=== PATIENT | male | born 1995 | race Hispanic/Latino ===

== ENCOUNTER 2020-04-21 13:14 | Inpatient (IN) | payer OTHER ==
[~2020-04-21] VITALS: Ht 175.3 cm; Wt 116.1 kg
[2020-04-21 14:51] LABS: BASOPHILS % 0.1 % (0.0-1.0); EOSINOPHILS % 0.4 % (0.0-6.0); HEMATOCRIT 22.9 % (38.2-49.6); LYMPHOCYTES # (AUTO) 1.3 (1.0-3.2); MEAN CORPUSCULAR HEMOGLOBIN 29.6 pg (28-32); MEAN CORPUSCULAR HGB CONC 29.7 g/dL (31-35); MEAN CORPUSCULAR VOLUME 99.6 fL (81-99); MONOCYTES # (AUTO) 0.6 (0.2-0.8); MONOCYTES % 5.4 % (4.4-11.3); NEUTROPHILS # (AUTO) 7.9 (2.1-6.9); NEUTROPHILS % 77.7 % (38.7-80.0); PLATELET COUNT 58 x10e3/uL (140-360); RED CELL DISTRIBUTION WIDTH 27.5 % (11.7-14.4)
[2020-04-21 14:57] LABS: HEMOGLOBIN 6.8 g/dL (14.0-18.0)
[2020-04-21 15:02] LABS: INR 1.1; PARTIAL THROMBOPLASTIN TIME 28.4 seconds (23.8-35.5); PROTHROMBIN TIME 14.9 seconds (11.9-14.5)
[2020-04-21 15:09] LABS: ALANINE AMINOTRANSFERASE 148 IU/L (0-55); ALBUMIN 2.6 g/dL (3.5-5.0); ALBUMIN/GLOBULIN RATIO 0.6 (0.8-2.0); ALKALINE PHOSPHATASE 77 IU/L (40-150); ANION GAP 12.8 mmol/L (8-16); BLOOD UREA NITROGEN 14 mg/dL (7-26); BUN/CREATININE RATIO 22 (6-25); CALCIUM 8.7 mg/dL (8.4-10.2); CARBON DIOXIDE 24 mmol/L (22-29); CHLORIDE 104 mmol/L (98-107); CREATINE KINASE 36 IU/L (30-200); CREATININE, SERUM 0.63 mg/dL (0.72-1.25); EST GLOMERULAR FILTRATION RATE > 60 ML/MIN (60-); GLUCOSE 108 mg/dL (74-118); POTASSIUM 3.8 mmol/L (3.5-5.1); SODIUM 137 mmol/L (136-145)
[2020-04-21] MEDS ORDERED: SODIUM CHLORIDE 0.9% 1000ML 1,000 ML IV STA (15:12)
[2020-04-21] MEDS ORDERED: PANTOPRAZOLE 40 MG 10ML VIAL IV NR (15:15)
[2020-04-21] MEDS ORDERED: FAMOTIDINE 20 MG/2 ML VIAL IV ONE (15:15)
[2020-04-21] MEDS ORDERED: SODIUM CHLORIDE 0.9% 250ML 250 ML IV ONE (15:15)
--- NOTE | 2020-04-21 15:18 | Emergency Department Note ---
History of Present Illnes History of Present Illness Chief Complaint: General Medicine Complaints History of Present Illness This is a 25 year old male . 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 Any updates have been documented here. 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 Pat[place] AAOX4 with only compliant of chronic CP Review of Systems Constitutional: Reports no symptoms EENTM: Reports no symptoms Cardiovascular: Reports chest pain Respiratory: Reports no symptoms Gastrointestinal: Reports no symptoms Genitourinary: Reports no symptoms Musculoskeletal: Reports no symptoms Integumentary: Reports no symptoms Neurological: Reports no symptoms Psychological: Reports no symptoms Endocrine: Reports no symptoms Hematological/Lymphatic: Reports no symptoms Physical Exam Related Data Allergies: Coded Allergies: No Known Allergies (Unverified , 04/21/20) Triage Vital Signs Vital Signs Date Time Temp Pulse Resp B/P (MAP) Pulse Ox O2 Delivery O2 Flow Rate FiO2 04/21/20 13:16 97.3 114 16 90/55 95 Room Air Physical Exam CONSTITUTIONAL Constitutional: Present well-developed, Present well-nourished, Present obese HENT HENT: Present normocephalic, Present atraumatic, Present oropharynx clear/moist, Present nose normal HENT L/R: Present left ext ear normal, Present right ext ear normal EYES Eyes: Reports PERRL, Reports conjunctivae normal NECK Neck: Present ROM normal PULMONARY Pulmonary: Present effort normal, Present breath sounds normal CARDIOVASCULAR Cardiovascular: Present regular rhythm, Present heart sounds normal, Present capillary refill normal, Present normal rate GASTROINTESTINAL Abdominal: Present soft, Present nontender, Present bowel sounds normal GENITOURINARY Genitourinary: Present exam deferred SKIN Skin: Present warm, Present dry, Present pale MUSCULOSKELETAL Musculoskeletal: Present ROM normal NEUROLOGICAL Neurological: Present alert, Present oriented x 3, Present no gross motor or sensory deficits PSYCHOLOGICAL Psychological: Present mood/affect normal, Present judgement normal Results Laboratory Result Diagram: 04/21/20 1420 Laboratory Laboratory Tests Test 04/21/20 14:20 White Blood Count 10.11 x10e3/uL (4.8-10.8) Red Blood Count 2.30 x10e6/uL (4.3-5.7) Hemoglobin 6.8 g/dL (14.0-18.0) Hematocrit 22.9 % (38.2-49.6) Mean Corpuscular Volume 99.6 fL (81-99) Mean Corpuscular Hemoglobin 29.6 pg (28-32) Mean Corpuscular Hemoglobin Concent 29.7 g/dL (31-35) Red Cell Distribution Width 27.5 % (11.7-14.4) Platelet Count 58 x10e3/uL (140-360) Neutrophils (%) (Auto) 77.7 % (38.7-80.0) Lymphocytes (%) (Auto) 13.0 % (18.0-39.1) Monocytes (%) (Auto) 5.4 % (4.4-11.3) Eosinophils (%) (Auto) 0.4 % (0.0-6.0) Basophils (%) (Auto) 0.1 % (0.0-1.0) Neutrophils # (Auto) 7.9 (2.1-6.9) Lymphocytes # (Auto) 1.3 (1.0-3.2) Monocytes # (Auto) 0.6 (0.2-0.8) Eosinophils # (Auto) 0.0 (0.0-0.4) Basophils # (Auto) 0.0 (0.0-0.1) Absolute Immature Granulocyte (auto 0.34 x10e3/uL (0-0.1) Imaging Imaging results reviewed: Yes Assessment & Plan Medical Decision Making MDM Blood work to R/O infection or anemia Discussed with patient results. Patient Type and crossed for 2 units. Albina in NAD. Will admit to Dr Iverson Reassessment Reassessment time: 15:18 Assessment & Plan Final Impression: (1) Anemia Last Vital Signs Date Time Temp Pulse Resp B/P (MAP) Pulse Ox O2 Delivery O2 Flow Rate FiO2 04/21/20 15:10 109 14 107/58 100 04/21/20 13:16 97.3 Room Air MAEGAN SANCHEZ Apr 21, 2020 15:18
[2020-04-21] MEDS ORDERED: HYDROMORPHONE 1MG/1ML INJ IV NR (15:30)
[2020-04-21] MEDS ORDERED: DIPHENHYDRAMINE HCL INJ 50 MG/ML VIAL IV NR (15:30)
[2020-04-21] MEDS ORDERED: ACETAMINOPHEN 325 MG TAB PO NR (15:30)
--- NOTE | 2020-04-21 15:38 | Diagnostic Imaging Report ---
EXAMINATION: CHEST SINGLE (PORTABLE) INDICATION: Weakness COMPARISON: None FINDINGS: LINES/TUBES:None LUNGS:The lungs are moderately inflated. No focal consolidation. Nodular opacities projecting over the left upper lung measure up to 2.5 cm. PLEURA:No pleural effusion or pneumothorax. MEDIASTINUM: The cardiomediastinal silhouette is enlarged. BONES/SOFT TISSUES:No acute osseous injury. ABDOMEN:No free air under the diaphragm. IMPRESSION: Nodular opacities projecting over the left upper lung measure up to 2.5 cm, concerning for pulmonary nodule. Recommend chest CT on a non-urgent basis for further evaluation. No focal pneumonia. Cardiomegaly. Signed by: Charline Rosas MD on 04/21/2020 3:35 PM
[2020-04-21] MEDS ORDERED: PREDNISONE20 MG (16:30)
[2020-04-21] MEDS ORDERED: AMIODARONE HCL200 MG (16:30)
[2020-04-21] MEDS ORDERED: AMLODIPINE BESYL5 MG (16:30)
[2020-04-21] MEDS ORDERED: XARELTO10 MG (16:30)
[2020-04-21] MEDS ORDERED: HYDROCODON-ACE1 EA11 (16:30)
[2020-04-21] MEDS ORDERED: FLUCONAZOLE200 MG (16:30)
[2020-04-21] MEDS ORDERED: NEULASTA6 MG/0.6 M (16:30)
[2020-04-21] MEDS ORDERED: ACYCLOVIR800 MG (16:30)
[2020-04-21] MEDS ORDERED: NITROFURANTOIN100 M1 (16:30)
[2020-04-21] MEDS ORDERED: BACLOFEN20 MG (16:30)
[2020-04-21 16:55] LABS: FERRITIN 3277.19 ng/mL (21.81-274.66)
--- NOTE | 2020-04-21 17:07 | NUR ---
RECEIVED PATIENT FROM ER. PATIENT A/O X3, EVEN RESPIRATIONS ON RA. LUNG SOUNDS CLEAR. TELEMETRY #17 ST 108. COLOSTOMY PRESENT. PADILLA IN PLACE WITH LIGHT CELESTE URINE. ABDOMINAL DRESSING PRESENT ON ADMISSION C/D/I. PATIENT HAS GENERALIZED PAIN 05/25. WHEELCHAIR/BED-BOUND. ABLE TO TRANSFER WITH MAX ASSIST. ORIENTED PATIENT TO ROOM AND CALL LIGHT. BED LOW, WHEELS LOCKED, SIDE RAILS X2. CALL LIGHT IN REACH WILL CONTINUE TO MONITOR PATIENT.
[2020-04-21 17:56] VITALS: BP 124/71
[2020-04-21 18:02] VITALS: BP 124/71
[2020-04-21 18:07] VITALS: BP 124/71
[2020-04-21 18:11] LABS: HEMATOCRIT 22.6 % (38.2-49.6)
[2020-04-21 18:13] LABS: HEMOGLOBIN 6.8 g/dL (14.0-18.0)
[2020-04-21] MEDS: SODIUM CHLORIDE 0.9% 1000ML 1,000 ML IV SCH (18:46)
--- NOTE | 2020-04-21 19:56 | NUR ---
RECEIVED PATIENT IN BED . AOX3 .RESPIRATIONS ARE EVEN AND UNLABORED . LUNG SOUNDS CLEAR. TELEMETRY #17 ST 108. COLOSTOMY PRESENT. PADILLA IN PLACE WITH LIGHT CELESTE URINE. ABDOMINAL DRESSING . PATIENT HAS GENERALIZED PAIN . WHEELCHAIR/BED-BOUND. CALL LIGHT WITH IN REACH .CONTINUE TO MONITOR
[2020-04-21 20:00] VITALS: BP 122/69
[2020-04-21 20:16] VITALS: BP 124/71
[2020-04-21] MEDS ORDERED: HYDROCODONE/APAP 5MG-325MG TAB PO PRN (22:30)
[2020-04-21] MEDS ORDERED: SODIUM CHLORIDE 0.9% 250ML 250 ML ONE (23:29)
[2020-04-21] MEDS ORDERED: METOPROLOL TARTRATE INJ 1 MG/ML VIAL IV PRN (23:30)
[2020-04-22] VITALS (7 sets, daily range): BP systolic 115–124; BP diastolic 54–74
--- NOTE | 2020-04-22 00:30 | NUR ---
STARTED BLOOD TRANSFUSION .NO REACTION NOTED ,CONTINUE TO MONITOR
[2020-04-22] MEDS: SODIUM CHLORIDE 0.9% 1000ML 1,000 ML IV SCH ×3 (01:30→19:29)
[2020-04-22] MEDS: HYDROCODONE/APAP 10MG-325MG TAB PO PRN ×3 (03:55→19:30)
--- NOTE | 2020-04-22 04:21 | NUR ---
MID LINE REMOVAL: Pulled out at 20cm tip was intact. Pressure dressing was applied. Patient showed no signs of distress. Denies discomfort. Advised to watch site dressed for any blood evidence and to notify nurse. Dressing will be rechecked after an hour to ensure adequate clotting and closure of insertion site.
--- NOTE | 2020-04-22 06:24 | NUR ---
TRANSFUSED 2 UNIT OF BLOOD,NO REACTION NOTED ,CALL LIGHT WITH IN REACH PICC INSERTION ORDERED
[2020-04-22 07:48] LABS: CLARITY,URINE SL CLOUDY (CLEAR); COLOR,URINE YELLOW (YELLOW)
[2020-04-22 07:49] LABS: BILIRUBIN,URINE SMALL (NEGATIVE); KETONES,URINE TRACE (NEGATIVE); LEUKOCYTE ESTERASE ,URINE TRACE (NEGATIVE); NITRITE,URINE POSITIVE (NEGATIVE); PROTEIN,URINE DIPSTICK 1+ (NEGATIVE); URINE UROBILINOGEN 1 mg/dL (0.2 - 1)
[2020-04-22 08:00] LABS: HEMATOCRIT 26.6 % (38.2-49.6); HEMOGLOBIN 8.1 g/dL (14.0-18.0)
[2020-04-22 08:05] LABS: WBC,URINE (MAN) >50 /HPF (0-5)
[2020-04-22 08:06] LABS: BACTERIA,URINE MANY /HPF; RBC,URINE 21-50 /HPF (0-5)
[2020-04-22 08:07] LABS: EPITHELIAL CELLS,URINE FEW /LPF
[2020-04-22] MEDS: MULTIVITAMINS/MINERALS TAB PO SCH (09:00)
[2020-04-22] MEDS: MAGNESIUM OXIDE 400 MG TAB PO SCH ×2 (09:00→17:00)
[2020-04-22] MEDS: ASCORBIC ACID 500 MG TAB PO SCH ×2 (09:00→17:00)
[2020-04-22] MEDS: ZINC SULFATE 220 MG CAP PO SCH ×2 (09:00→17:00)
[2020-04-22] MEDS: FAMOTIDINE 20 MG TAB PO SCH ×2 (09:30→16:30)
[2020-04-22] MEDS: OYST-CAL-D 500MG TABLET PO SCH ×2 (09:33→17:00)
--- NOTE | 2020-04-22 10:00 | NUR ---
PT IN WITH PATIENT AT THIS TIME
--- NOTE | 2020-04-22 10:48 | NUR ---
CALLED [facility] TO SEE WHAT PIC LINE IS BEING USED FOR, DON TO FIND OUT AND CALL BACK.
[2020-04-22 12:39] LABS: HEMATOCRIT 27.2 % (38.2-49.6); HEMOGLOBIN 8.3 g/dL (14.0-18.0)
--- NOTE | 2020-04-22 13:35 | NUR ---
WOUND CARE CONSULT FOR 25 YO MALE HX OF ANEMIA,WEAKNESS EZEQUIEL 18 ON CONSERVATIVE PUP STATUS AND INTERVENTIONS AND ALTERNATING PRESSURE MATTRESS LABS: WBC-10.11 HGB_6.8 GLUCOSE-108 COLOSTOMY TEACHING DONE EXPLANATION AND RETURN DEMONSTRATION OF JOSUE SKIN PROTECTIVE TECHNIQUES AND APPLIANCE APPLICATION ACHIEVED WILL FOLLOW UP TOMORROW WITH HANDOUT INFORMATION SKIN ASSESSMENT COMPLETE PATIENT PRESENTS WITH COLOSTOMY ,RIGHT NECK FULLTHICKNESS SURGICAL WOUND 1CM X 2CM X 1CM UNDERMINES FROM 12-1OCLOCK 1CM FULLTHICKNESS SURGICAL ABDOMINAL WOUND 2CM X 2CM X 2.5CM UNDERMINING 10-12 OCLOCK 4.5CM SACRAL STAGE 2 ULCERATION 2CM X 1CM X 0.2CM HEALING STAGE 4 ULCERATION TO LEFT GLUTE /JOSUE ANAL 7CM X 5CM X 2CM RECOMMENDATIONS: NURSING TO CONTINUE TO MAINTAIN CONSERVATIVE PUP STATUS AND INTERVENTIONS AND ALTERNATING PRESSURE MATTRESS NURSING TO CONTINUE TO ASSIST PATIENT OUT OF BED FOR MEALS AND MUCH TOLERATED NURSING TO CONTINUE TO ASSIST PATIENT NEEDED WITH MEALS AND NUTRITIONAL SUPPLEMENTS TO ENSURE PROPER REQUIREMENTS FOR HEALING NURSING TO CONTINUE TO OFFLOAD FEET AND HEELS NEEDED WITH PILLOW SUSPENSION WHEN IN BED NURSING TO CLEAN RIGHT NECK FULLTHICKNESS SURGICAL WOUND FULLTHICKNESS SURGICAL ABDOMINAL WOUND WITH NORMAL SALINE DAILY AND PACK WITH IODOFORM MARGARITA AND COVER WITH 4X4 AND ALLEVYN FOAM DRESSING NURSING TO CLEAN SACRAL STAGE 2 ULCERATION HEALING STAGE 4 ULCERATION TO LEFT GLUTE /JOSUE ANAL WITH NORMAL SALINE DAILY AND PACK WITH SILVER ALGINATE (MAXSORB AG ) AND COVER WITH ALLEVYN FOAM DRESSING Addendum: 04/22/20 at 1353 by Moe Mao RN Amended: Links added.
--- NOTE | 2020-04-22 13:59 | NUR ---
FAXED CLINICALS TO FACILITY TO BEGIN PROCESS TO RETURN PT TO FACILITY
--- NOTE | 2020-04-22 18:30 | NUR ---
NO CHANGES THIS TIME IN PT STATUS. DR. JESUS TO SEE PT. WANTING WOUND VAC TO BE PLACE BUT WILL TALK WITH CM PRIOR TO ORDERING.
--- NOTE | 2020-04-22 19:02 | NUR ---
WALKING ROUNDS PERFORMED, RECEIVED PT LAYING SEMI FOWLERS IN BED, AAOX3, RR EVEN AND NON-LABORED. PT REPORTS PAIN TO CHEST AND HEADACHE, PT REPORTS THIS IS HIS NORMAL PAIN. LEFT PT LAYING SEMI FOWLERS IN BED, BED IN LOW LOCKED POSITION, SIDE RAILS UPX2, CALL LIGHT AND PHONE WITHIN REACH.
[2020-04-22 20:19] LABS: HEMATOCRIT 27.3 % (38.2-49.6); HEMOGLOBIN 8.3 g/dL (14.0-18.0)
--- NOTE | 2020-04-22 20:52 | Consultation ---
DATE OF CONSULTATION: Wound Consultation HISTORY OF PRESENT ILLNESS: A 25-year-old male patient, consult from for anemia. The patient has history of testicular cancer. He was recently admitted with intestinal perforation, had a colon resection and colostomy one month ago. Also has cerebral infarction, paraplegic, has sacral pressure ulcer, has a nonhealing abdominal wall ulcer. Wound consult was called. He also has a wound on the right side of the neck. The patient is awake and alert. He has some cognitive impairment. He states he came from home, however, he is on [facility] the care home. The patient is bedbound, answers to simple questions. ALLERGIES: NONE. PHYSICAL EXAMINATION: VITAL SIGNS: Blood pressure 124/71, pulse 88, and temperature 98.3. HEENT: The patient has wound on the right side of the neck. LUNG: Diminished at the bases. CVS: Normal. ABDOMEN: Soft. The patient has colostomy in the left side of the abdomen. The patient has a wound that measures 1.3 x 1.3 x 2 cm with undermining for 3.5 cm between 12 and 2 o'clock position. EXTREMITIES: Lower extremities, no edema. Sacral area, the patient has stage IV pressure ulcer to the muscle, measures 6 x 6 cm, 100% granulated. LABORATORY DATA: The patient's chest x-ray shows nodular opacity projecting over the upper lung, measures 2.5 cm, concerning for pulmonary nodule. ASSESSMENT: Postsurgical abdominal wall ulcer, sacral ulcer stage IV, history of testicular cancer, and anemia. PLAN: Recommend wound VAC treatment for the abdominal wall ulcer. Hydrogel, Aquacel, ABD to the sacral wound intact. The right neck ulcer with iodoform gauze. Thank you for consultation. The patient cleared for discharge to the care home. MD KALEB Ortega/DORIS /[id number]
--- NOTE | 2020-04-22 21:14 | NUR ---
NOTIFIED ANDREZ DELATORRE NP. CONCERNING ELEVATED HR WITH NO COVERAGE. NO NEW ORDERS RECEIVED CONTINUE TO MONITOR PATIENT.
[2020-04-23] VITALS (8 sets, daily range): BP systolic 97–135; BP diastolic 51–69
[2020-04-23 01:03] LABS: ANION GAP 10.7 mmol/L (8-16); BLOOD UREA NITROGEN 13 mg/dL (7-26); BUN/CREATININE RATIO 19 (6-25); CALCIUM 8.5 mg/dL (8.4-10.2); CARBON DIOXIDE 23 mmol/L (22-29); CHLORIDE 105 mmol/L (98-107); CREATININE, SERUM 0.68 mg/dL (0.72-1.25); EST GLOMERULAR FILTRATION RATE > 60 ML/MIN (60-); GLUCOSE 76 mg/dL (74-118); POTASSIUM 3.7 mmol/L (3.5-5.1); SODIUM 135 mmol/L (136-145)
[2020-04-23 01:14] LABS: HEMATOCRIT 26.2 % (38.2-49.6); HEMOGLOBIN 8.2 g/dL (14.0-18.0)
[2020-04-23] MEDS: HYDROCODONE/APAP 10MG-325MG TAB PO PRN ×3 (01:30→20:10)
--- NOTE | 2020-04-23 02:59 | Progress Note ---
DATE: 04/22/2020 CONSULTING PHYSICIANS: 1. Dr. Ramona Gabriel. 2. Dr. Scar Chavarria. SUBJECTIVE: Lying supine in bed. The patient states chest pain now is 6/10, requesting Major catheter remain in place at discharge in order to allow his sacral decubitus to heal. He states he lives with his mother and brother and taken a system at home, which would be better than going to a [facility], especially in order to avoid COVID pandemic. He states that his right shoulder pain and headache are better. OBJECTIVE: VITAL SIGNS: Temperature 97.9, pulse 76, blood pressure 115/63, respirations 20, and oxygen saturation 99%. Intake and output 1200 mL in and 1100 mL out. GENERAL: Supine, alert. LUNGS: Clear to auscultation. Respiratory pattern is even and nonlabored. Breathing on room air. HEENT: EOMI. NECK: Supple. No JVD. CARDIOVASCULAR: Regular rate and rhythm. No murmur. Normal saline infusing at 100 mL an hour into peripheral IV. Right midline has been removed. ABDOMEN: Bowel sounds positive. Soft. He has a midline abdominal incision which is small and has packing in place. Has a colostomy. Major catheter with jaquan urine. EXTREMITIES: No pitting edema. No clubbing, cyanosis, or marked swelling. No signs or symptoms of DVT. NEUROLOGICAL: GCS 15, nonfocal. He is awake and alert. INTEGUMENTARY: Abdominal wound as above. Right jaw/neck wound with packing. Stage III sacral decubitus ulcer. DIAGNOSTIC LABORATORY DATA: Hemoglobin 8.1 and hematocrit 26.6. Followup hemoglobin and hematocrit today around noon, hemoglobin 8.3 and hematocrit 27.2 at about 6:30 p.m. Hemoglobin 8.3, hematocrit 27.3, iron 59, TIBC 283, percent saturation 21, transferrin 202, ferritin 3277.19 on 04/21. Vitamin B12 of 136 and folate 4.6. Urinalysis showed slightly cloudy clarity 1+ protein, trace amount of ketones, trace amount of leukocyte esterase, RBC 21 to 50, WBC greater than 50, many urine bacteria. Coronavirus collected on 04/21 remains pending. ASSESSMENT AND PLAN: 1. Anemia with iron deficiency, likely anemia of chronic disease from multiple wounds Hematology/Oncology following status post 2 units of PRBCs. The patient is known to have cancer. Continue clear liquid diet for now. 2. Multiple wounds; all POA, sacral stage IV decubitus ulcer, right neck wound, abdominal wound. Wound care physician, saw and evaluated the patient today. He states wound VAC treatment recommended for the abdominal wall ulcer. Continue Hydrogel, Aquacel an ABD pad to the sacral wound. Right neck ulcer with iodoform gauze. Continue offloading and wound healing medications. The patient has been cleared from the wound care MD standpoint for discharge. 3. 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 Continue pain control, Oncology following. Monitor CBC results. Continue colostomy care. 4. Possible urinary tract infection, present on arrival. Urinalysis showed a trace amount of leukocyte esterase and is positive for nitrites, many urine bacteria. No urine cultures noted. Last set of culture and sensitivity be collected stat. 5. Transaminitis. ALT and AST elevated and monitor. 6. Ambulatory dysfunction. PT evaluation and treat. LINDSEY hourly while awake. 7. Prophylaxis. Pepcid. Time spent 35 minutes. Billing code [id number]. Dictated by Sal Mcgovern NP MD LEANDER Dos Santos/DORIS /[id number]
[2020-04-23] MEDS: SODIUM CHLORIDE 0.9% 1000ML 1,000 ML IV SCH ×2 (04:45→17:30)
[2020-04-23 06:50] LABS: BASOPHILS % 0.3 % (0.0-1.0); EOSINOPHILS # (AUTO) 0.1 (0.0-0.4); EOSINOPHILS % 1.5 % (0.0-6.0); HEMATOCRIT 25.4 % (38.2-49.6); HEMOGLOBIN 7.8 g/dL (14.0-18.0); LYMPHOCYTES # (AUTO) 1.7 (1.0-3.2); LYMPHOCYTES % 19.6 % (18.0-39.1); MEAN CORPUSCULAR HEMOGLOBIN 30.7 pg (28-32); MEAN CORPUSCULAR HGB CONC 30.7 g/dL (31-35); MONOCYTES # (AUTO) 0.5 (0.2-0.8); MONOCYTES % 5.1 % (4.4-11.3); NEUTROPHILS # (AUTO) 6.2 (2.1-6.9); RED BLOOD COUNT 2.54 x10e6/uL (4.3-5.7); RED CELL DISTRIBUTION WIDTH 23.9 % (11.7-14.4)
[2020-04-23 07:07] LABS: PLATELET COUNT 44 x10e3/uL (140-360)
[2020-04-23] MEDS: FAMOTIDINE 20 MG TAB PO SCH ×2 (07:30→18:40)
--- NOTE | 2020-04-23 08:00 | NUR ---
RECEIVED PT EARLIER ON BEDSIDE REPORT RESTING QUIETLY.
[2020-04-23] MEDS: ZINC SULFATE 220 MG CAP PO SCH ×2 (08:16→18:40)
[2020-04-23] MEDS: ASCORBIC ACID 500 MG TAB PO SCH ×2 (08:16→18:40)
[2020-04-23] MEDS: MAGNESIUM OXIDE 400 MG TAB PO SCH ×2 (08:16→18:40)
[2020-04-23] MEDS: MULTIVITAMINS/MINERALS TAB PO SCH (08:16)
[2020-04-23] MEDS: OYST-CAL-D 500MG TABLET PO SCH ×2 (08:16→18:40)
--- NOTE | 2020-04-23 08:46 | NUR ---
WOUND CARE CONSULT FOR FOLLOW UP OSTOMY TEACHING HANDOUT GIVEN AND VERBAL REVIEW OF PREVIOUS INSTRUCTION GIVEN PATIENT ABLE TO VERBALIZE PROTECTIVE TECHNIQUES FOR JOSUE SKIN AND APPLIANCE FITTING AND MAINTENANCE DURING TEACHING PATIENT EXPRESSED INTEREST IN OUTPATIENT FOLLOWUP FOR WOUND CARE INFORMATION SHARED WITH PATIENT FOR [facility] WOUND CLINIC AND NURSING/CASE MANAGMENT INFORMED FOR DISCHARGE PLANNING Addendum: 04/23/20 at 0851 by Moe Mao RN Amended: Links added.
--- NOTE | 2020-04-23 09:30 | NUR ---
PAIN MEDICATION GIVEN EARLIER. PT FELLING BETTER AT THIS TIME.
--- NOTE | 2020-04-23 11:00 | NUR ---
Kerry DELATORRE CHARGE ENTRY CLERK TO SEE PT.
[2020-04-23] MEDS ORDERED: SODIUM CHLORIDE 0.9% 250ML 250 ML IV ONE (11:30)
[2020-04-23] MEDS ORDERED: ACETAMINOPHEN 325 MG TAB PO ONE (12:00)
[2020-04-23] MEDS ORDERED: DIPHENHYDRAMINE HCL INJ 50 MG/ML VIAL IV ONE (12:00)
[2020-04-23 12:08] LABS: HEMATOCRIT 25.9 % (38.2-49.6)
--- NOTE | 2020-04-23 12:21 | NUR ---
ASKED TO CALL FACILITY TO GET INFORMATION ABOUT PRIOR ONCOLOGIST. THEY LET ME KNOW NO PRIOR RECORDS EXCEPT A YESSI UMANZOR NOTE FROM [facility] STAY FROM march. GAVE INFORMATION TO MACHINIST APPRENTICE WOOD
[2020-04-23] MEDS: ACETAMINOPHEN 325 MG TAB PO PRN (15:22)
--- NOTE | 2020-04-23 17:00 | NUR ---
TEMP EARLIER WAS 102.8 2 TYLENOL GIVEN ORDERED. NOTIFIED ANDREZ DELATORRE NP. TEMP RECHECKED HOUR LATER DOWN TO 100.1
[2020-04-23 18:49] LABS: HEMATOCRIT 25.6 % (38.2-49.6); HEMOGLOBIN 7.8 g/dL (14.0-18.0)
--- NOTE | 2020-04-23 18:50 | NUR ---
REPORT GIVEN TO ON COMING SHIFT.
--- NOTE | 2020-04-23 19:18 | NUR ---
WALKING ROUNDS PERFORMED, RECEIVED PT LAYING SEMI FOWLERS IN BED, AAOX3, RR EVEN AND NON-LABORED, ON ROOM AIR. PT REPORTS PAIN TO CHEST. DRESSING TO (R) NECK HAS COME OFF. POC EXPLAINED TO PATIENT TO HAVE DRESSINGS CHANGED. LEFT PT LAYING SEMI FOWLERS IN BED, BED IN LOW LOCKED POSITION, SIDE RAILS UPX2, CALL LIGHT AND PHONE WITHIN REACH.
[2020-04-23] MEDS ORDERED: FUROSEMIDE INJ 10 MG/ML 4 ML VIAL ONE (19:49)
--- NOTE | 2020-04-23 22:30 | NUR ---
NOTIFIED ANDREZ DELATORRE NP FOR MD JACKMAN CONCERNING REQUEST FOR ANTIBIOTICS FROM MD SHARMA. NO NEW ORDERS RECEIVED WAS INFORMED THAT HE DIDNT WANT TO START THE ANTIBIOTICS AT THIS TIME UNTIL BLOOD CULTURE OR URINE CULTURES CAME BACK.
[2020-04-24] VITALS (8 sets, daily range): BP systolic 117–160; BP diastolic 54–93
--- NOTE | 2020-04-24 00:38 | Progress Note ---
DATE: 04/23/2020 SUBJECTIVE: The patient has chest pain off and on. He is requesting additional pain medication. States the current increase in [place] is not enough. I have explained to the patient that we would need to wait for Oncology as they are more familiar with dealing with cancer pain. I explained to him that I do not want to overdose him. Otherwise, no new complaints. OBJECTIVE: VITAL SIGNS: Temperature 99.7, heart rate 123, blood pressure 126/62, respirations 19, oxygen saturation 97%. LUNGS: Clear to auscultation. Respirations unlabored. HEENT: EOMI. NECK: Supple. CARDIOVASCULAR: Regular rate and rhythm. No murmur. Normal saline infusing at 100 mL an hour. Right upper extremity midline has been removed. Currently using propofol IV. ABDOMEN: Bowel sounds positive. Soft, obese. He has a midline abdominal incision with packing in place. Colostomy. Major catheter with jaquan urine. EXTREMITIES: No pitting edema. No clubbing, cyanosis, or marked swelling. No signs of DVT. NEUROLOGICAL: GCS 15. Nonfocal. INTEGUMENTARY: Abdominal wound as above. Right jaw/neck wound with packing. Stage IV sacral decubitus ulcer. DIAGNOSTICS: WBC 8.78, RBC 2.54, hemoglobin 7.8, hematocrit 25.4, platelets 44. Subsequent hemoglobin and hematocrit 8 and 25.9, then 7.8 and 25.6. Sodium 135, potassium 3.7, chloride 105, CO2 of 23, BUN 13, creatinine 0.68, estimated GFR greater than 60, glucose 76, calcium 8.5. Fecal occult blood test collected today was negative. Coronavirus PCR collected 04/21 not detected. Blood cultures x2 and urine culture all collected today with results pending. No new imaging studies. Telemetry shows sinus tachycardia with a heart rate of 120. ASSESSMENT AND PLAN: 1. Anemia with iron deficiency, likely anemia of chronic disease from multiple wounds. Hematology/Oncology following. The patient has had 2 units of PRBCs yesterday due to low hemoglobin and low platelet counts. Orders were received from Hematology for 2 units of blood and one jumbo pack of platelets; however, the patient began running a temperature. Thus, blood products were held. 2. Multiple wounds; all present on admission, sacral stage IV decubitus ulcer, right neck wound, abdominal wound. The wound care physician is following. Continue Hydrogel, Aquacel, and ABD pad to the sacral wound. Right neck ulcer with iodoform gauze. Continue offloading and wound healing medications. The patient has been cleared for discharge from a wound care MD standpoint. 3. 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 Continue pain control. Oncology following. Monitor CBC results. Continue colostomy care. 4. Possible urinary tract infection, present on arrival. No culture results as of yet. 5. Transaminitis, AST 52, ALT 148. 6. Ambulatory dysfunction. PT eval and treat. 7. Prophylaxis. Pepcid. Time spent 35 minutes. Billing code [id number]. Dictated by Sal Mcgovern, JUD Tariq Iverson MD HWP/MODL /[id number]
--- NOTE | 2020-04-24 01:40 | Diagnostic Imaging Report ---
ADDENDUM #1 Update to findings and impression should include New left upper extremity PICC tip terminates in the superior cavoatrial junction. Signed by: Mik Turk DO on 04/24/2020 1:50 AM ORIGINAL REPORT EXAMINATION: CHEST XRAY LINE PLACEMENT INDICATION: PICC line placement, verify position COMPARISON: Chest x-ray 04/21/2020 FINDINGS: TUBES and LINES: None. LUNGS: Normal lung volumes. Large right paramediastinal/lung mass contiguous with the mediastinum. Multiple pulmonary nodules PLEURA: No pleural effusion or pneumothorax. HEART AND MEDIASTINUM: Borderline cardiomegaly. BONES AND SOFT TISSUES: No acute osseous lesion. Soft tissues are unremarkable. UPPER ABDOMEN: No free air under the diaphragm. IMPRESSION: Large right paramediastinal/lung mass and multiple pulmonary nodules. Recommend chest CT with contrast, systemic venous phase, not PE protocol. Signed by: Mik Turk DO on 04/24/2020 1:36 AM
[2020-04-24] MEDS: HYDROCODONE/APAP 10MG-325MG TAB PO PRN ×3 (02:53→20:57)
[2020-04-24] MEDS: SODIUM CHLORIDE 0.9% 1000ML 1,000 ML IV SCH ×3 (03:03→23:30)
[2020-04-24 03:39] LABS: BASOPHILS % 0.1 % (0.0-1.0); EOSINOPHILS # (AUTO) 0.1 (0.0-0.4); EOSINOPHILS % 1.6 % (0.0-6.0); HEMATOCRIT 23.7 % (38.2-49.6); HEMOGLOBIN 7.2 g/dL (14.0-18.0); LYMPHOCYTES # (AUTO) 1.9 (1.0-3.2); LYMPHOCYTES % 22.9 % (18.0-39.1); MEAN CORPUSCULAR HEMOGLOBIN 29.9 pg (28-32); MEAN CORPUSCULAR HGB CONC 30.4 g/dL (31-35); MEAN CORPUSCULAR VOLUME 98.3 fL (81-99); MONOCYTES # (AUTO) 0.5 (0.2-0.8); MONOCYTES % 5.7 % (4.4-11.3); NEUTROPHILS # (AUTO) 5.6 (2.1-6.9); NEUTROPHILS % 67.1 % (38.7-80.0); RED BLOOD COUNT 2.41 x10e6/uL (4.3-5.7); RED CELL DISTRIBUTION WIDTH 23.7 % (11.7-14.4)
[2020-04-24 03:51] LABS: PLATELET COUNT 33 x10e3/uL (140-360)
[2020-04-24 04:00] LABS: ALANINE AMINOTRANSFERASE 127 IU/L (0-55); ALBUMIN 2.3 g/dL (3.5-5.0); ALBUMIN/GLOBULIN RATIO 0.6 (0.8-2.0); ALKALINE PHOSPHATASE 69 IU/L (40-150); ANION GAP 13.3 mmol/L (8-16); BLOOD UREA NITROGEN 11 mg/dL (7-26); BUN/CREATININE RATIO 19 (6-25); CALCIUM 8.1 mg/dL (8.4-10.2); CARBON DIOXIDE 21 mmol/L (22-29); CHLORIDE 106 mmol/L (98-107); CREATININE, SERUM 0.59 mg/dL (0.72-1.25); EST GLOMERULAR FILTRATION RATE > 60 ML/MIN (60-); GLUCOSE 75 mg/dL (74-118); POTASSIUM 3.3 mmol/L (3.5-5.1); SODIUM 137 mmol/L (136-145)
--- NOTE | 2020-04-24 06:35 | NUR ---
CALL PLACED FOR MD RESTREPO TO REPORT CRITICAL PLT COUNT. WAITING FOR CALLBACK.
--- NOTE | 2020-04-24 06:41 | NUR ---
CRITICAL LAB FOR PLATLETS CALLED TO MD SHARMA, NEW ORDERS RECEIVED AND TO GIVE THE PRBC AND PLATLETS.
[2020-04-24] MEDS ORDERED: ACETAMINOPHEN 325 MG TAB PO ONE ×2 (06:45→14:15)
--- NOTE | 2020-04-24 07:10 | NUR ---
RCD PT AT BED PT IS ALERT AND ORIENTED PT RESTING ON BED IV PATENT BY SALINE FLUSH BED LOW AND LOCKED CALL LIGHT IN REACH
[2020-04-24] MEDS: FAMOTIDINE 20 MG TAB PO SCH ×2 (07:30→16:30)
--- NOTE | 2020-04-24 08:14 | NUR ---
ASSISTED FACILITY DISCHARGE INFORMATION PATIENT HAS BEEN ACCEPTED TO: NAME: JORDIN [address]: [id number] ACCEPT[address] JOURNAL BOX INSPECTOR: KEELEY SOTO ACCEPTING MD: ELADIO ROOM: 116 NURSE CALL REPORT TO: [phone] IMM SIGNED AND OBTAINED (if applicable): THE FOLLOWING DOCUMENTS MUST ACCOMPANY PATIENT FOR TRANSFER: COPIED CHART: PACKET
--- NOTE | 2020-04-24 08:15 | NUR ---
WILL LOOSE AUTH TODAY, IF DOESNT GO TODAY THEN WILL HAVE TO RESTART AUTH PROCESS AT [facility].
[2020-04-24] MEDS: MULTIVITAMINS/MINERALS TAB PO SCH (09:00)
[2020-04-24] MEDS: ASCORBIC ACID 500 MG TAB PO SCH ×2 (09:00→17:00)
[2020-04-24] MEDS: OYST-CAL-D 500MG TABLET PO SCH ×2 (09:00→17:00)
[2020-04-24] MEDS: ZINC SULFATE 220 MG CAP PO SCH ×2 (09:00→17:00)
[2020-04-24] MEDS: MAGNESIUM OXIDE 400 MG TAB PO SCH ×2 (09:00→17:00)
[2020-04-24] MEDS ORDERED: SODIUM CHLORIDE 0.9% 250ML 250 ML ONE (09:41)
[2020-04-24] MEDS ORDERED: SODIUM CHLORIDE 0.9% 250ML 250 ML IV ONE (10:20)
[2020-04-24] MEDS: VANCOMYCIN 1GM/NS 250 ML 250 ML IV SCH ×2 (10:30→21:30)
--- NOTE | 2020-04-24 10:45 | NUR ---
HR 138/MT NOTIFIED PRINCE MAGUIRE NO NEW ORDERS
--- NOTE | 2020-04-24 11:50 | NUR ---
notified wound there is an order to wound vac
[2020-04-24] MEDS: METRONIDAZOLE 500MG/NS 100ML 100 ML IV SCH ×3 (12:00→23:45)
[2020-04-24] MEDS: PIPER-TAZ 3.375 GM 50 ML IV SCH ×3 (12:00→23:15)
--- NOTE | 2020-04-24 12:00 | NUR ---
CALL AGAIN TO WOUND CARE TO GET THE ANSWER FOR WOUND VAC SHE SAID HE ALREADY LEFT ,NOTIFIED CHARGE NURSE SHE SAID NOTIFY DR JESUS,SO PAGED DR JESUS TO NOTIFY THAT,
--- NOTE | 2020-04-24 13:50 | NUR ---
PLATELET 220 ML STARTED AFTER VERIFIED WITH ANOTHER RN AND VITALS
[2020-04-24] MEDS ORDERED: IOPAMIDOL 370 MG/ML 200 ML INFUS..BTL INJ ONE (13:53)
[2020-04-24] MEDS ORDERED: SODIUM CHLORIDE 0.9% 50ML 50 ML ONE (13:53)
--- NOTE | 2020-04-24 14:00 | NUR ---
PAGED AGAIN TO DR JESUS TO NOTIFY THAT
--- NOTE | 2020-04-24 14:20 | NUR ---
PLATELET TRANSFUSION COMPLETED VITALS CHECKED PT RESTING ON BED VITALS CHECKED
--- NOTE | 2020-04-24 14:35 | NUR ---
BLOOD TRANSFUSION STARTED AFTER VERIFIED WITH ANOTHER RN AND AFTER VITALS ,SPENT 15 MTS WITH PT ,PT RESTING ON BED
--- NOTE | 2020-04-24 16:18 | NUR ---
DR JESUS RETURNED CALL HE SAID ITS OK TO PUT THE WOUND VAC ON MONDAY
--- NOTE | 2020-04-24 17:06 | NUR ---
BLOOD TRANSFUSION COMPLETED VITALS CHECKED PT RESTING ON BED
--- NOTE | 2020-04-24 18:10 | NUR ---
Nutrition Intervention Note RD Recommendation(s) for Physician: -Continue current diet as ordered - Recommend Ensure Compact BID for added nutrition due to pressure ulcer -Recommend Tyrell BID as well as zinc and vitamin C to promote wound healing Plan of Care: RD following, monitoring for tolerance and adequacy, oral supplement recommendation Nutrition reason for involvement: pressure ulcer RD Assessment (04/24/20) Pt is a 25 year old male admitted with anemia and weakness. Pt stated he has been eating about 50% of his meals for the past month. Pt was unsure of his weight status and stated he last weighed 300 lbs. Pt stated weight in chart of 256 lbs is not accurate. There are no previous weights in chart. It is noted that pt has sacral stage 2 ulcer and healing stage 4 left gluteal/irish anal ulcer. No N/V or chewing/swallowing issues noted. Pt has a colostomy. Will continue to monitor. Principal Problems/Diagnoses: anemia and weakness PMH: testicular cancer, intestinal perforation, colon resection and colostomy one month ago, cerebral infarction, paraplegic, sacral pressure ulcer, nonhealing abdominal wall ulcer. GI: soft, non-tender, round abdomen Skin: sacral stage 2 ulcer, healing stage 4left gluteal/irish anal ulcer Labs: (04/24) Na 137, K 3.3, Cr 0.59, Ca 8.1, AST 38, ALT 127 Meds: antibiotics, zinc sulfate, MV with minerals, vitamin C, magnesium oxide, pepcid, calcium carbonate, metoprolol, zofran Ht: 69 inches Wt: 300 lbs (per pt) BMI: 44.3 kg/m2 IBW: 160 lbs Malnutrition Evaluation (04/24/20) The patient does not meet criteria for a specified degree of malnutrition at this time. Will re-evaluate at follow-up as appropriate. Nutrition Prescription (Diet Order): cardiac Estimated Nutritional Needs: [id number] calories/day (22-25 kcal/kg IBW) 109-145 g protein/day (1.5-2 g pro/kg IBW) Diet Adequacy: Pt reports eating 50% of meals for the past month Tolerance: Tolerating PO Diet Education Needs Assessment: Pt declined the need for diet education Nutrition Care Level: moderate Nutrition Diagnosis: Increased nutrient needs related to increased demand for protein and kcal as evidenced by pressure ulcers. Goal: Patient will meet 75-100% of estimated needs by follow up Progress: N/A Interventions: -fat/cholesterol/sodium- modified diet, Commercial beverage, Multivitamin/mineral supplement therapy Monitoring/Evaluation: -Total energy intake, Total protein intake, Modified diet, Liquid supplement, Weight change Signed: Mallory Benoit RD, LD
--- NOTE | 2020-04-24 18:31 | Diagnostic Imaging Report ---
EXAM: CT Abdomen and Pelvis WITH contrast INDICATION: History of perforated viscous w/bowel resection; +neurosarcoidosis COMPARISON: None. TECHNIQUE: Abdomen and pelvis were scanned utilizing a multidetector helical scanner from the lung base to the pubic symphysis after administration of IV contrast. Coronal and sagittal reformations were obtained. Routine protocol was performed. Scan was performed when during portal venous phase. IV CONTRAST: 100 mL of Isovue 370 ORAL CONTRAST: None COMPLICATIONS: None RADIATION DOSE: Total DLP: 980.4 mGy*cm Estimated effective dose: (DLP x 0.015 x size factor) mSv CTDIvol has been reviewed. It is below the limits set by the Radiation Protocol Committee (RPC). Dose modulation, iterative reconstruction, and/or weight based adjustment of the mA/kV was utilized to reduce the radiation dose to as low as reasonably achievable. FINDINGS: LINES and TUBES: None. LOWER THORAX: There is a partially imaged multilobulated right paramediastinal mass which demonstrates peripheral enhancement with a necrotic center and causing mass effect on the mediastinal structures. Additionally, there are multiple nodules throughout both lungs suspicious for metastatic disease. HEPATOBILIARY: There are multiple hypodense lesions in the liver the largest measuring approximately 6.8 x 6.2 cm. No biliary ductal dilation. GALLBLADDER: No radio-opaque stones or sludge. No wall thickening. SPLEEN: No splenomegaly. PANCREAS: There is effacement of the normal pancreatic tail parenchyma with adjacent fat stranding suspicious for mild pancreatitis. ADRENALS: No adrenal nodules KIDNEYS/URETERS: Kidneys enhance symmetrically. No hydronephrosis. There is a cyst in the upper pole of the right kidney. No solid mass or stones bilaterally. GI TRACT: There is left hemicolectomy with colostomy in place. There is short segment with mucosal wall thickening and perihilar fat stranding in the sigmoid colon . No abnormal distention or evidence of bowel obstruction. Appendix is normal. PELVIC ORGANS/BLADDER: There is a Major catheter in place in the urinary bladder is completely decompressed. The large pelvic mass. The prostate gland is normal for technique. LYMPH NODES: No lymphadenopathy. VESSELS: There is an IVC filter in place. PERITONEUM / RETROPERITONEUM: No free air or fluid. BONES: Unremarkable. SOFT TISSUES: Postoperative changes status post colostomy with subcutaneous fat stranding and midline abdominal wall defect. IMPRESSION: 1. Partially imaged multilobulated right paramediastinal mass which demonstrates peripheral enhancement with a necrotic center and causing mass effect on mediastinal structures. Multiple nodules throughout both lungs and masses in the liver most suspicious for metastatic lesions. Recommend complete evaluation of the lungs with contrast-enhanced chest CT scan. 2. Effacement of the normal pancreatic tail parenchyma with adjacent fat stranding suspicious for mild pancreatitis. 3. Mucosal wall thickening and peripheral fat stranding of the sigmoid colon which may represent inflammatory infectious process. Signed by: Pancho Ha MD on 04/24/2020 6:28 PM
--- NOTE | 2020-04-24 19:00 | NUR ---
PT RESTING ON BED BED SIDE REPORT GIVEN TO ONCOMING NURSE
[2020-04-25] VITALS (8 sets, daily range): BP systolic 103–119; BP diastolic 56–71
[2020-04-25] MEDS ORDERED: SODIUM CHLORIDE 0.9% 250ML 250 ML ONE (01:02)
--- NOTE | 2020-04-25 02:03 | Progress Note ---
DATE: 04/24/2020 CONSULTING PHYSICIANS: Include: 1. Dr. Maxi Gabriel with Oncology/Hematology. 2. Dr. Chavarria with Wound Care. SUBJECTIVE: The patient is lying supine in bed, asleep. He is easily arousable. He has chest pain off and on, shoulder pain at times. Regular bowel movements. OBJECTIVE: VITAL SIGNS: Temperature 100.3, heart rate 131, blood pressure 118/60, respirations 18, and oxygen saturation 95% on room air. GENERAL: Supine. No acute distress. LUNGS: Clear to auscultation. Respiratory pattern even and unlabored, breathing room air. HEENT: EOMI. NECK: Supple. No JVD. CARDIOVASCULAR: Regular rate and rhythm. Normal saline infusing at 100 mL an hour. No murmur. Right upper extremity midline was removed previously. ABDOMEN: Bowel sounds positive. Soft, obese, nontender. No guarding. He has a midline abdominal incision with packing in place. He has a colostomy. Major catheter with jaquan urine. EXTREMITIES: No pitting edema. No clubbing, cyanosis, or marked swelling. No signs of DVT. NEUROLOGICAL: GCS 15. Nonfocal. INTEGUMENTARY: Abdominal wound as described above. Has a right jaw/neck wound with packing. Stage IV sacral decubitus ulcer. DIAGNOSTIC STUDIES: WBC 8.37, hemoglobin 7.2, hematocrit 23.7, platelets 133. Sodium 137, potassium 3.3, chloride 106, CO2 of 21, BUN 11, creatinine 0.59, glucose 75, total bilirubin 1, AST 38, ALT 127, alkaline phosphatase 69, total protein 6.2, albumin 2.3, estimated GFR greater than 60. Calcium 8.1. Abdominal wound culture collected today. Final Gram stain, a few WBCs seen, no organisms. Wound culture is pending. Blood cultures x2 show no growth after 24 hours. Preliminary urine culture collected on 04/23 shows gram-negative rods, colony count greater than or equal to 100,000 CFU/mL. Identification and susceptibility are to follow. Catheter placement x-ray done early this morning showed a large right paramediastinal/lung mass and multiple pulmonary nodules. Recommend a chest CT with contrast systemic venous phase, not PE protocol. CT of the abdomen and pelvis showed multi-lobulated right paramediastinal mass, which demonstrates peripheral enhancement with a necrotic center causing mass effect on mediastinal structures, multiple nodules throughout both lungs and masses in the liver, most suspicious for metastatic lesions. Recommend complete evaluation of the lungs with contrast enhanced chest CT scan, effacement of the normal pancreatic tail parenchyma with adjacent fat stranding suspicious for mild pancreatitis, mucosal wall thickening and peripheral fat stranding of the sigmoid colon may represent inflammatory infectious process. Per telemetry, sinus tachycardia with a heart rate of 122. ASSESSMENT AND PLAN: 1. Anemia with iron deficiency, likely anemia of chronic disease from cancer and multiple wounds. Hematology/Oncology following. The patient received PRBCs earlier in the stay, has orders for additional blood; however, this was unable to be given as the patient had a temperature of 102.8 on 04/23 at 1556. The patient is seen and evaluated by the oncologist today. The patient had 2 units of PRBCs and one jumbo pack of platelets ordered. He has received 1 unit of blood and one pack of platelets, still has 1 unit of blood to be given. 2. Multiple wounds; all present on admission, sacral stage IV decubitus ulcer, right neck wound, midline abdominal wound. Wound Care physician is following. Continue Hydrogel, Aquacel, an ABD pad to the sacral wound, right neck ulcer with iodoform gauze. Continue offloading and continue the wound healing medications. The patient has been cleared for discharge from a Wound Care MD standpoint. 3. 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 Oncology following, appreciate recommendations and pain management expertise. Monitor CBC results. Continue colostomy care. Per the oncologist, the patient had a pulmonary embolism at [facility] in December. In August, he was at [facility] in the emergency department with cough, and chest lesion was biopsied. 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 Four courses of chemotherapy were ordered; however, he was not responsive to the chemotherapy. CT was done, which showed 2.5 cm mass. He had a perforated viscus and required a bowel resection. Plan is for aggressive antibiotics, Flagyl, vancomycin, Zosyn. Continue to monitor his CBC and provide PRBCs, platelets, and iron. His HALF-WAY 30.8, very low per Pain Management. Duragesic patch 50 mcg every 72 hours. 4. Possible urinary tract infection with gram-negative rods, present on admission, awaiting final urine culture results. 5. Transaminitis with AST 52 and ALT 148. Continue to monitor. We will get a complete metabolic panel, CBC, magnesium and phosphorus in the morning. 6. Ambulatory dysfunction. PT eval and treat. 7. Prophylaxis, Pepcid and SCDs. Billing code 97929. Time spent 45 minutes. Dictated by Sal Mcgovern, JUD MD KAMALJIT Dos SantosP/MODL /[id number]
[2020-04-25] MEDS: HYDROCODONE/APAP 10MG-325MG TAB PO PRN ×4 (03:00→23:35)
[2020-04-25] MEDS: PIPER-TAZ 3.375 GM 50 ML IV SCH ×3 (05:00→17:01)
[2020-04-25] MEDS: METRONIDAZOLE 500MG/NS 100ML 100 ML IV SCH ×4 (06:00→23:01)
[2020-04-25 06:16] LABS: BASOPHILS % 0.3 % (0.0-1.0); EOSINOPHILS # (AUTO) 0.2 (0.0-0.4); EOSINOPHILS % 2.1 % (0.0-6.0); HEMATOCRIT 25.5 % (38.2-49.6); HEMOGLOBIN 7.9 g/dL (14.0-18.0); LYMPHOCYTES # (AUTO) 1.6 (1.0-3.2); LYMPHOCYTES % 20.9 % (18.0-39.1); MEAN CORPUSCULAR HEMOGLOBIN 30.2 pg (28-32); MEAN CORPUSCULAR VOLUME 97.3 fL (81-99); MONOCYTES # (AUTO) 0.4 (0.2-0.8); MONOCYTES % 4.9 % (4.4-11.3); NEUTROPHILS # (AUTO) 5.3 (2.1-6.9); NEUTROPHILS % 70.3 % (38.7-80.0); PLATELET COUNT 59 x10e3/uL (140-360); RED BLOOD COUNT 2.62 x10e6/uL (4.3-5.7); RED CELL DISTRIBUTION WIDTH 21.6 % (11.7-14.4)
[2020-04-25 06:50] LABS: ALANINE AMINOTRANSFERASE 74 IU/L (0-55); ALBUMIN 2.1 g/dL (3.5-5.0); ALBUMIN/GLOBULIN RATIO 0.6 (0.8-2.0); ALKALINE PHOSPHATASE 68 IU/L (40-150); BLOOD UREA NITROGEN 9 mg/dL (7-26); BUN/CREATININE RATIO 15 (6-25); CALCIUM 7.8 mg/dL (8.4-10.2); CARBON DIOXIDE 23 mmol/L (22-29); CHLORIDE 108 mmol/L (98-107); CREATININE, SERUM 0.62 mg/dL (0.72-1.25); EST GLOMERULAR FILTRATION RATE > 60 ML/MIN (60-); GLUCOSE 91 mg/dL (74-118); MAGNESIUM 1.6 MG/DL (1.3-2.1); PHOSPHORUS 2.7 MG/DL (2.3-4.7); SODIUM 139 mmol/L (136-145)
--- NOTE | 2020-04-25 07:10 | NUR ---
RCD PT AT BED PT IS ALERT AND ORIENTED PT RESTING ON BED IV PATENT AND RUNNING 100 ML /HRBED LOW AND LOCKED CALL LIGHT IN REACH
[2020-04-25] MEDS: FAMOTIDINE 20 MG TAB PO SCH ×2 (07:30→16:30)
[2020-04-25] MEDS: ZINC SULFATE 220 MG CAP PO SCH ×2 (09:00→17:00)
[2020-04-25] MEDS: MAGNESIUM OXIDE 400 MG TAB PO SCH ×2 (09:00→17:00)
[2020-04-25] MEDS: ASCORBIC ACID 500 MG TAB PO SCH ×2 (09:00→17:00)
[2020-04-25] MEDS: MULTIVITAMINS/MINERALS TAB PO SCH (09:00)
[2020-04-25] MEDS: OYST-CAL-D 500MG TABLET PO SCH ×2 (09:00→17:00)
[2020-04-25] MEDS: VANCOMYCIN 1GM/NS 250 ML 250 ML IV SCH ×2 (09:00→21:15)
[2020-04-25] MEDS: SODIUM CHLORIDE 0.9% 1000ML 1,000 ML IV SCH ×2 (09:30→19:30)
[2020-04-25] MEDS ORDERED: MAGNESIUM SULFATE 2GM/50ML 50 ML IV ONE (09:45)
[2020-04-25] MEDS: CYANOCOBALAMIN INJ 1,000 MCG/ML VIAL IM SCH (11:30)
[2020-04-25] MEDS: ACETAMINOPHEN 325 MG TAB PO PRN (11:45)
[2020-04-25] MEDS ORDERED: POTASSIUM CHLORIDE 20MEQ/100ML 200 ML IV ONE (12:45)
--- NOTE | 2020-04-25 14:00 | NUR ---
DRESSING CHANGED AND COLOSTOMY BAG EMPTIED
--- NOTE | 2020-04-25 17:42 | NUR ---
attempted tx with pt but he is refusing due to sacral wound and would rather not attempt transfers with slide board until wound heals> pt also wished to d/c from therapy services until wound healed , pt does have good understanding of transfers and able to recite back to therapist Addendum: 04/25/20 at 1744 by Dc Velasco PTA Amended: Links added.
--- NOTE | 2020-04-25 18:44 | NUR ---
PT RESTING ON BED BED SIDE REPORT GIVEN TO ONCOMING NURSE
[2020-04-26] VITALS (8 sets, daily range): BP systolic 96–128; BP diastolic 56–71
[2020-04-26] MEDS: METRONIDAZOLE 500MG/NS 100ML 100 ML IV SCH ×3 (05:10→18:10)
[2020-04-26] MEDS: SODIUM CHLORIDE 0.9% 1000ML 1,000 ML IV SCH ×2 (05:30→15:30)
[2020-04-26 05:45] LABS: BASOPHILS % 0.1 % (0.0-1.0); EOSINOPHILS # (AUTO) 0.1 (0.0-0.4); HEMATOCRIT 23.8 % (38.2-49.6); HEMOGLOBIN 7.3 g/dL (14.0-18.0); LYMPHOCYTES # (AUTO) 1.5 (1.0-3.2); LYMPHOCYTES % 22.1 % (18.0-39.1); MEAN CORPUSCULAR HEMOGLOBIN 29.9 pg (28-32); MEAN CORPUSCULAR HGB CONC 30.7 g/dL (31-35); MEAN CORPUSCULAR VOLUME 97.5 fL (81-99); MONOCYTES # (AUTO) 0.4 (0.2-0.8); MONOCYTES % 5.4 % (4.4-11.3); NEUTROPHILS # (AUTO) 4.8 (2.1-6.9); NEUTROPHILS % 69.2 % (38.7-80.0); RED BLOOD COUNT 2.44 x10e6/uL (4.3-5.7); RED CELL DISTRIBUTION WIDTH 21.6 % (11.7-14.4)
[2020-04-26] MEDS: HYDROCODONE/APAP 10MG-325MG TAB PO PRN ×4 (05:50→23:35)
[2020-04-26 05:54] LABS: PLATELET COUNT 40 x10e3/uL (140-360)
[2020-04-26] MEDS: PIPER-TAZ 3.375 GM 50 ML IV SCH ×5 (06:10→23:30)
[2020-04-26 06:12] LABS: ANION GAP 8.3 mmol/L (8-16); BLOOD UREA NITROGEN 9 mg/dL (7-26); BUN/CREATININE RATIO 16 (6-25); CALCIUM 7.7 mg/dL (8.4-10.2); CARBON DIOXIDE 24 mmol/L (22-29); CHLORIDE 108 mmol/L (98-107); CREATININE, SERUM 0.55 mg/dL (0.72-1.25); EST GLOMERULAR FILTRATION RATE > 60 ML/MIN (60-); GLUCOSE 75 mg/dL (74-118); MAGNESIUM 1.5 MG/DL (1.3-2.1); PHOSPHORUS 2.6 MG/DL (2.3-4.7); POTASSIUM 3.3 mmol/L (3.5-5.1); SODIUM 137 mmol/L (136-145)
--- NOTE | 2020-04-26 06:37 | NUR ---
SPOKE TO DR. SHARMA REGARDING PLATELET 40 AND HGB 7.3. NEW ORDER RECEIVED FOR TYPE AND SCREEN, GIVE 2 UNITS OF BLOOD, EACH UNIT TO BE TRANSFUSE OVER 3 HOURS. ADMINISTER LASIX 20MG IV BEFORE EACH UNIT. CBC AND BMP TOMORROW 04/27/2020. NO ORDER FOR PLATELET. SAID PLATELET IS OK ABOVE 20.
--- NOTE | 2020-04-26 07:00 | NUR ---
RCD PT AT BED PT IS ALERT AND ORIENTED PT RESTING ON BED IV PATENT BY SALINE FLUSH BED LOW AND LOCKED CALL LIGHT IN REACH
[2020-04-26] MEDS: FAMOTIDINE 20 MG TAB PO SCH ×2 (07:30→16:30)
[2020-04-26] MEDS: MAGNESIUM OXIDE 400 MG TAB PO SCH ×2 (09:00→17:00)
[2020-04-26] MEDS: MULTIVITAMINS/MINERALS TAB PO SCH (09:00)
[2020-04-26] MEDS: CYANOCOBALAMIN INJ 1,000 MCG/ML VIAL IM SCH (09:00)
[2020-04-26] MEDS: VANCOMYCIN 1GM/NS 250 ML 250 ML IV SCH ×2 (09:00→20:30)
[2020-04-26] MEDS: OYST-CAL-D 500MG TABLET PO SCH ×2 (09:00→17:00)
[2020-04-26] MEDS: ZINC SULFATE 220 MG CAP PO SCH ×2 (09:00→17:00)
[2020-04-26] MEDS: ASCORBIC ACID 500 MG TAB PO SCH ×2 (09:00→17:00)
[2020-04-26] MEDS: ACETAMINOPHEN 325 MG TAB PO PRN ×2 (09:45→17:00)
[2020-04-26] MEDS: FUROSEMIDE INJ 10 MG/ML 2 ML VIAL IV PRN ×2 (09:55→14:50)
[2020-04-26] MEDS ORDERED: SODIUM CHLORIDE 0.9% 250ML 250 ML ONE ×2 (09:58→14:56)
--- NOTE | 2020-04-26 10:00 | NUR ---
BLOOD TRANSFUSION STARTED AFTER VERIFIED WITH ANOTHER RN AND VITALS , CLOSE MONITOR 15 MT ,PT RESTING ON BED
--- NOTE | 2020-04-26 11:01 | NUR ---
DIETITIAN RECOMMENDED ENSURE COMPACT +ELI BID NOTIFIED PRINCE MAGUIRE HE IS OK WITH IT
--- NOTE | 2020-04-26 12:50 | NUR ---
BLOOD TRANSFUSION COMPLETED PT RESTING ON BED VITALS CHECKED PT RESTING ON BED
--- NOTE | 2020-04-26 15:00 | NUR ---
SECOND UNIT OF BLOOD STARTED AFTER VERIFIED WITH ANOTHER RN AND AFTER VITALS ,PT RESTING ON BED
--- NOTE | 2020-04-26 18:00 | NUR ---
BLOOD TRANSFUSION COMPLETED VITALS CHECKED PT RESTING ON BED
--- NOTE | 2020-04-26 18:46 | NUR ---
PT RESTING ON BED BED SIDE REPORT GIVEN TO ONCOMING NURSE
[2020-04-26] MEDS ORDERED: MAGNESIUM SULFATE 2GM/50ML 50 ML IV ONE ×2 (20:15→21:21)
[2020-04-26] MEDS ORDERED: POTASSIUM CHLORIDE 20MEQ/100ML 200 ML IV ONE (20:15)
--- NOTE | 2020-04-26 21:21 | Progress Note ---
DATE: 04/25/2020 CONSULTING PHYSICIANS: 1. Dr. Hernandez with Hematology Oncology. 2. Dr. Chavarria with Wound Care. SUBJECTIVE: The patient is supine, head of bed elevated. Awake, alert, has chest pain off and on and shoulder pain at times, but currently has no complaints of pain. Good appetite. OBJECTIVE: VITAL SIGNS: Temperature 99.1, heart rate 103, blood pressure 119/64, respirations 18, and oxygen saturation 99% on room air. GENERAL: Awake, alert, supine. LUNGS: Clear to auscultation. Respiratory pattern even and nonlabored. No supplemental oxygen. HEENT: EOMI. NECK: Supple. No JVD. CARDIOVASCULAR: Regular rate and rhythm. No murmur. Normal saline infusing at 100 mL an hour into left upper extremity PICC line. ABDOMEN: Bowel sounds positive. Soft, nontender, obese. No guarding. Midline abdominal incision with packing in place. He has a colostomy. A Major catheter with jaquan urine. EXTREMITIES: Without pitting edema. No clubbing, cyanosis, or marked swelling or signs of DVT. NEUROLOGICAL: GCS 15. Nonfocal. DIAGNOSTIC STUDIES: Labs for today, WBC 7.55, hemoglobin 7.9, hematocrit 25.5, and platelets 59. Fingerstick blood glucose level 107. Sodium 139, potassium 3.0, chloride 108, CO2 of 23, anion gap 11, BUN 9, creatinine 0.62, estimated GFR greater than 60, glucose 91, calcium 7.8, phosphorus 2.7, magnesium 1.6, total bilirubin 1.1, AST 18, ALT 74, alkaline phosphatase 68, total protein 5.8, and albumin 2.1. Vancomycin trough level 3.6. ASSESSMENT AND PLAN: 1. Anemia with iron deficiency, likely anemia of chronic disease from cancer and multiple wounds. Hematology/Oncology following. Vitamin B12 has been ordered, 1 unit of blood given earlier this morning. He also had a unit of blood on April 21 and 1 unit on April 22, as well as a unit on April 24, jumbo platelets on April 24. 2. Multiple wounds; all present on admission, sacral stage IV decubitus ulcer, right neck wound, midline abdominal wound. Wound care MD following, Hydrogel, Aquacel, and ABD pad to the sacral wound. Right neck ulcer with iodoform gauze dressing. Continue offloading. Continue wound healing medications. The patient has been cleared for discharge from a wound care MD standpoint. 3. 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 Oncology following. 4. 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 The plan is for aggressive antibiotics, Flagyl, vancomycin, and Zosyn. Duragesic patch 50 mcg every 72 hours per Pain Management. 5. Transaminitis with ALT 74 (148), improving. Continue to monitor. 6. Ambulatory dysfunction. PT evaluation and treat. 7. Prophylaxis with Pepcid and SCDs. Billing code [id number]. Time spent 35 minutes. Dictated by Sal Mcgovern NP MD KAMALJIT Dos SantosP/MODL /[id number]
--- NOTE | 2020-04-26 22:01 | Progress Note ---
DATE: SUBJECTIVE: Currently, no pain. Dizzy when moves the head of bed up and down. He wants home health for colostomy/wound care upon discharge. Mild cough. Same chronic chest pain off and on. The patient states his rash along his shoulders, chest and back has been there for about one year. OBJECTIVE: VITAL SIGNS: Temperature 99.7, heart rate 118, blood pressure 111/62, respirations 18, and oxygen saturation 92% on room air. GENERAL: Head of bed elevated, supine. LUNGS: Clear to auscultation. Respiratory pattern even and unlabored. HEENT: EOMI. NECK: Supple. No JVD. CARDIOVASCULAR: Regular rate and rhythm. No murmur. Normal saline infusing at 100 mL an hour into left upper extremity PICC line. ABDOMEN: Bowel sounds positive. Soft, nontender, obese. No guarding. He has a midline abdominal incision with packing in place. He has a colostomy. Major catheter with jaquan urine. EXTREMITIES: No pitting edema. No clubbing, cyanosis, or signs of DVT. NEUROLOGICAL: GCS 15. Nonfocal. Oriented x4. INTEGUMENTARY: Abdominal wound as described above. Has a right jaw/neck wound with packing stage IV sacral decubitus ulcer. DIAGNOSTIC STUDIES: Labs from today; WBC 6.91, RBCs 2.44, hemoglobin 7.3, hematocrit 23.8, platelets 40. Sodium 137, potassium 3.3, chloride 108, CO2 of 24, anion gap 8.3, BUN 9, creatinine 0.55, estimated GFR greater than 60, glucose 75, calcium 7.7, phosphorus 2.6, magnesium 1.5. Yesterday vancomycin trough 3.6. Coronavirus not detected on 04/21. Wound culture final shows moderate amount of colony count with Staphylococcus SP coag-negative. No new imaging studies. ASSESSMENT AND PLAN: 1. Anemia with iron deficiency, likely anemia of chronic disease from cancer and multiple wounds. Hematology/Oncology following. The patient had a temperature of 102.8 on 04/23 at 15:56 and was unable to receive blood at that time, however, has received blood products since then including recently 2 units of PRBCs and 1 jumbo pack of platelets. Continue to follow H and H and platelet count. 2. Multiple wounds; all present on admission, sacral stage IV decubitus ulcer, right neck wound, midline abdominal wound. Wound care physician following. Appreciate recommendations. Continue Hydrogel, Aquacel and ABD pad to the sacral wound. The right neck ulcer has iodoform gauze dressing and to be changed daily. Continue offloading. Continue wound healing medications. 3. 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 The patient was not responsive to the 1st of four courses of chemotherapy that were ordered and suddenly stopped. CT showed a 2.5 cm mass. He had a perforated viscus and required a bowel resection and that was about a month ago. Continue vancomycin, Flagyl and Zosyn. Monitor CBC. Duragesic patch 50 mcg every 72 hours for pain. 4. Transaminitis, improving. 5. Hypomagnesemia. The patient received 2 g of magnesium sulfate yesterday. Magnesium level 1.5 (1.6). As his magnesium remains very low and seems somewhat refractory to treatment, we will go ahead and give 4 g of magnesium sulfate IV once. 6. Acute hypokalemia. Potassium level 3.3 (3.0). The patient received 40 mEq of potassium chloride IV via his PICC line yesterday. We will give another 40 mEq after the magnesium sulfate today. 7. Ambulatory dysfunction. PT evaluation and treat. 8. Prophylaxis. Pepcid and SCDs. Billing code [id number]. Time spent 35 minutes. Dictated by Sal Mcgovern NP MD KAMALJIT Dos SantosP/JANETL /[id number]
[2020-04-27] VITALS (8 sets, daily range): BP systolic 104–120; BP diastolic 59–73
[2020-04-27] MEDS: SODIUM CHLORIDE 0.9% 1000ML 1,000 ML IV SCH ×3 (04:55→21:30)
[2020-04-27] MEDS: PIPER-TAZ 3.375 GM 50 ML IV SCH ×3 (05:00→18:44)
[2020-04-27] MEDS: HYDROCODONE/APAP 10MG-325MG TAB PO PRN ×3 (05:40→20:15)
[2020-04-27] MEDS: METRONIDAZOLE 500MG/NS 100ML 100 ML IV SCH ×4 (05:45→17:27)
[2020-04-27] MEDS: FAMOTIDINE 20 MG TAB PO SCH ×2 (07:30→16:30)
[2020-04-27] MEDS: VANCOMYCIN 1GM/NS 250 ML 250 ML IV SCH (08:34)
[2020-04-27] MEDS: ZINC SULFATE 220 MG CAP PO SCH ×2 (09:00→17:27)
[2020-04-27 09:44] LABS: BASOPHILS % 0.1 % (0.0-1.0); EOSINOPHILS # (AUTO) 0.1 (0.0-0.4); EOSINOPHILS % 1.8 % (0.0-6.0); HEMATOCRIT 26.6 % (38.2-49.6); HEMOGLOBIN 8.4 g/dL (14.0-18.0); LYMPHOCYTES # (AUTO) 1.4 (1.0-3.2); MEAN CORPUSCULAR HEMOGLOBIN 29.5 pg (28-32); MEAN CORPUSCULAR HGB CONC 31.6 g/dL (31-35); MEAN CORPUSCULAR VOLUME 93.3 fL (81-99); MONOCYTES # (AUTO) 0.3 (0.2-0.8); MONOCYTES % 4.2 % (4.4-11.3); NEUTROPHILS # (AUTO) 5.8 (2.1-6.9); RED BLOOD COUNT 2.85 x10e6/uL (4.3-5.7); RED CELL DISTRIBUTION WIDTH 21.1 % (11.7-14.4)
[2020-04-27 09:54] LABS: ALANINE AMINOTRANSFERASE 38 IU/L (0-55); ALBUMIN 2.1 g/dL (3.5-5.0); ALBUMIN/GLOBULIN RATIO 0.6 (0.8-2.0); ALKALINE PHOSPHATASE 51 IU/L (40-150); ANION GAP 10.5 mmol/L (8-16); BLOOD UREA NITROGEN 10 mg/dL (7-26); BUN/CREATININE RATIO 18 (6-25); CALCIUM 7.6 mg/dL (8.4-10.2); CARBON DIOXIDE 26 mmol/L (22-29); CHLORIDE 104 mmol/L (98-107); CREATININE, SERUM 0.57 mg/dL (0.72-1.25); EST GLOMERULAR FILTRATION RATE > 60 ML/MIN (60-); GLUCOSE 77 mg/dL (74-118); POTASSIUM 3.5 mmol/L (3.5-5.1); SODIUM 137 mmol/L (136-145)
[2020-04-27 09:58] LABS: PLATELET COUNT 30 x10e3/uL (140-360)
[2020-04-27 10:09] LABS: MAGNESIUM 1.8 MG/DL (1.3-2.1); PHOSPHORUS 2.2 MG/DL (2.3-4.7)
[2020-04-27] MEDS: OYST-CAL-D 500MG TABLET PO SCH ×2 (10:20→17:26)
[2020-04-27] MEDS: ASCORBIC ACID 500 MG TAB PO SCH ×2 (10:20→17:27)
[2020-04-27] MEDS: MAGNESIUM OXIDE 400 MG TAB PO SCH ×2 (10:20→17:26)
[2020-04-27] MEDS: MULTIVITAMINS/MINERALS TAB PO SCH (10:20)
[2020-04-27] MEDS: CYANOCOBALAMIN INJ 1,000 MCG/ML VIAL IM SCH (10:20)
--- NOTE | 2020-04-27 10:30 | NUR ---
PATIENT REPORTED THAT HIS OUTPATIENT ONCOLOGIST IS DR. RADHA OCASIO, .
--- NOTE | 2020-04-27 15:09 | NUR ---
WOUND VAC APPLIED TODAY. PT TOLERATED WELL. Addendum: 04/27/20 at 1511 by Candace Rodrigues RN Amended: Links added.
--- NOTE | 2020-04-27 15:36 | NUR ---
CALLED [facility]; REPORTED TO HIM THE PATIENT'S HGB: 8.4, PLT COUNT 30, HCG, QUANT 01112.5, POTASSIUM 3.4.
--- NOTE | 2020-04-27 19:55 | NUR ---
RECEIVED REPORT FROM PREVIOUS NURSE. CALL LIGHT WITHIN REACH. PATIENT IN BED. ROUNDING PERFORMED.
[2020-04-27] MEDS: ACETAMINOPHEN 325 MG TAB PO PRN (20:15)
[2020-04-27] MEDS: ONDANSETRON HCL INJ 2MG/ML 2ML 2 MG/ML VIAL IV PRN (20:15)
[2020-04-28] VITALS (8 sets, daily range): BP systolic 109–126; BP diastolic 60–77
[2020-04-28] MEDS: PIPER-TAZ 3.375 GM 50 ML IV SCH ×5 (00:13→23:18)
[2020-04-28] MEDS: METRONIDAZOLE 500MG/NS 100ML 100 ML IV SCH ×4 (00:45→17:04)
[2020-04-28] MEDS: HYDROCODONE/APAP 10MG-325MG TAB PO PRN ×4 (03:17→23:19)
[2020-04-28 05:47] LABS: BASOPHILS % 0.3 % (0.0-1.0); EOSINOPHILS # (AUTO) 0.1 (0.0-0.4); EOSINOPHILS % 1.3 % (0.0-6.0); HEMOGLOBIN 7.7 g/dL (14.0-18.0); LYMPHOCYTES # (AUTO) 1.4 (1.0-3.2); LYMPHOCYTES % 17.3 % (18.0-39.1); MEAN CORPUSCULAR HEMOGLOBIN 29.5 pg (28-32); MEAN CORPUSCULAR HGB CONC 30.8 g/dL (31-35); MEAN CORPUSCULAR VOLUME 95.8 fL (81-99); MONOCYTES # (AUTO) 0.4 (0.2-0.8); NEUTROPHILS % 75.3 % (38.7-80.0); RED BLOOD COUNT 2.61 x10e6/uL (4.3-5.7); RED CELL DISTRIBUTION WIDTH 20.8 % (11.7-14.4)
[2020-04-28 06:29] LABS: ANION GAP 9.8 mmol/L (8-16); BLOOD UREA NITROGEN 11 mg/dL (7-26); BUN/CREATININE RATIO 19 (6-25); CALCIUM 7.5 mg/dL (8.4-10.2); CARBON DIOXIDE 25 mmol/L (22-29); CHLORIDE 107 mmol/L (98-107); CREATININE, SERUM 0.59 mg/dL (0.72-1.25); EST GLOMERULAR FILTRATION RATE > 60 ML/MIN (60-); GLUCOSE 82 mg/dL (74-118); POTASSIUM 3.8 mmol/L (3.5-5.1); SODIUM 138 mmol/L (136-145)
[2020-04-28 06:36] LABS: PLATELET COUNT 22 x10e3/uL (140-360)
--- NOTE | 2020-04-28 06:39 | NUR ---
CALLED DR. JACKMAN OFFICE AND LEFT A MESSAGE ABOUT THE PATIENT HAVING A CRITICAL LAB VALUE OF 22.
--- NOTE | 2020-04-28 07:00 | NUR ---
RECEIVED BEDSIDE SHIFT CHANGE REPORT FROM PM NURSE. PT SLEEPING, RESPIRATIONS EVEN AND NONLABORED, NO SIGNS OF DISTRESS. WILL CONTINUE TO MONITOR.
--- NOTE | 2020-04-28 07:26 | NUR ---
GAVE BEDSIDE SHIFT REPORT TO ONCOMING NURSE. CALL LIGHT WITHIN REACH. PATIENT IN BED. HOURLY ROUNDING PERFORMED.
[2020-04-28] MEDS: FAMOTIDINE 20 MG TAB PO SCH ×2 (07:30→16:30)
[2020-04-28] MEDS: ASCORBIC ACID 500 MG TAB PO SCH ×2 (09:43→17:04)
[2020-04-28] MEDS: OYST-CAL-D 500MG TABLET PO SCH ×2 (09:43→17:04)
[2020-04-28] MEDS: MULTIVITAMINS/MINERALS TAB PO SCH (09:43)
[2020-04-28] MEDS: MAGNESIUM OXIDE 400 MG TAB PO SCH ×2 (09:44→17:04)
[2020-04-28] MEDS: ZINC SULFATE 220 MG CAP PO SCH ×2 (09:44→17:04)
[2020-04-28] MEDS: CYANOCOBALAMIN INJ 1,000 MCG/ML VIAL IM SCH (09:45)
[2020-04-28] MEDS: SODIUM CHLORIDE 0.9% 1000ML 1,000 ML IV SCH ×3 (09:56→23:18)
--- NOTE | 2020-04-28 10:31 | NUR ---
SPOKE WITH PT ABOUT HOSPICE EDUCATION REFERRAL, HE WOULD LIKE TO SPEAK WITH SOMEONE TO JUST ASK QUESTIONS AND THEN MAKE DECISION. SIGNED CHOICE TO BE ABLE TO SPEAK WITH [facility] FOR EDUCATION. CONTACTED REP, SHE WILL COME SPEAK WITH HIM. IT IS A PRIVATE INSURANCE AND IF HE CHOOSES TO GO HOSPICE ROUTE WILL GET CHOICE FROM COMPANIES IN NETWORK.
--- NOTE | 2020-04-28 16:00 | NUR ---
WOUND CARE CONSULT TO FOLLOW UP INTEREST FOR OUTPATIENT WOUND CARE. MOTHER SUPERIOR CONTACTED WOUND CARE NURSE TO FAX INFORMATION REGARDING PT AND TO SET UP AN APPOINTMENT AT [facility] OUT PATIENT WOUND CARE CLINIC. MOTHER SUPERIOR INFORMED THIS NURSE THAT NURSE PRACTITIONER TRIED TO CONTACT DR. RIVERA. NO ANSWER. MOTHER SUPERIOR IS INFORMED THAT TRANSPORTATION IS SET UP BY MOTHER SUPERIOR OR PT, NOT OUTPATIENT WOUND CAR CENTER. PT CURRENTLY HAS AN APPOINTMENT ON 04/30/[address] [facility], MOTHER SUPERIOR AWARE. PT WILL REQUIRED A WOUND VAC APPLICATION, WOUND CARE AND HOME HEALTH SERVICES WHILE BEING TREATED AT THE WOUND CARE CENTER. THIS NURSE WILL NOTIFY WOUND CARE PUBLIC RELATIONS SALES MARKETING. Addendum: 04/28/20 at 2146 by Angie Rogers RN Amended: Links added.
--- NOTE | 2020-04-28 19:10 | NUR ---
RECEIVED REPORT FROM PREVIOUS NURSE. CALL LIGHT WITHIN REACH. PATIENT IN BED. ROUNDING PERFORMED
[2020-04-28] MEDS: ONDANSETRON HCL INJ 2MG/ML 2ML 2 MG/ML VIAL IV PRN (23:40)
[2020-04-29] VITALS: BP 104/66
--- NOTE | 2020-04-29 00:38 | NUR ---
CALLED DR. JACKMAN OFFICE AND TALKED TO JUD MCQUEEN ABOUT THE PATIENT REQUESTING TO BE RETESTED FOR COVID AND THAT HE IS COUGHING AND SPITTING OUT BRIGHT RED BLOODY MUCOUS IN A CUP AND TOWEL. RICHAR SAID SHE WILL DISCUSS THE MATTER WITH DR. JACKMAN IN THE MORNING.
[2020-04-29 04:00] VITALS: BP 110/77
[2020-04-29] MEDS: ACETAMINOPHEN 325 MG TAB PO PRN (05:23)
[2020-04-29] MEDS: PIPER-TAZ 3.375 GM 50 ML IV SCH (05:23)
[2020-04-29] MEDS: METRONIDAZOLE 500MG/NS 100ML 100 ML IV SCH ×2 (06:02)
[2020-04-29 06:20] LABS: ALANINE AMINOTRANSFERASE 22 IU/L (0-55); ALBUMIN 1.8 g/dL (3.5-5.0); ALBUMIN/GLOBULIN RATIO 0.5 (0.8-2.0); ALKALINE PHOSPHATASE 57 IU/L (40-150); ANION GAP 10.4 mmol/L (8-16); BLOOD UREA NITROGEN 10 mg/dL (7-26); BUN/CREATININE RATIO 19 (6-25); CARBON DIOXIDE 20 mmol/L (22-29); CHLORIDE 109 mmol/L (98-107); CREATININE, SERUM 0.53 mg/dL (0.72-1.25); EST GLOMERULAR FILTRATION RATE > 60 ML/MIN (60-); GLUCOSE 82 mg/dL (74-118); POTASSIUM 3.4 mmol/L (3.5-5.1); SODIUM 136 mmol/L (136-145)
[2020-04-29 06:26] LABS: CALCIUM 6.5 mg/dL (8.4-10.2)
[2020-04-29 06:38] LABS: BASOPHILS % 0.2 % (0.0-1.0); EOSINOPHILS # (AUTO) 0.1 (0.0-0.4); HEMATOCRIT 21.8 % (38.2-49.6); LYMPHOCYTES % 24.3 % (18.0-39.1); MEAN CORPUSCULAR HEMOGLOBIN 29.3 pg (28-32); MEAN CORPUSCULAR HGB CONC 29.8 g/dL (31-35); MEAN CORPUSCULAR VOLUME 98.2 fL (81-99); MONOCYTES # (AUTO) 0.4 (0.2-0.8); MONOCYTES % 4.8 % (4.4-11.3); NEUTROPHILS # (AUTO) 5.8 (2.1-6.9); RED BLOOD COUNT 2.22 x10e6/uL (4.3-5.7); RED CELL DISTRIBUTION WIDTH 20.1 % (11.7-14.4)
[2020-04-29 06:51] LABS: HEMOGLOBIN 6.5 g/dL (14.0-18.0); PLATELET COUNT 21 x10e3/uL (140-360)
--- NOTE | 2020-04-29 07:23 | NUR ---
CALLED DR. JACKMAN OFFICE AND TALKED TO RICHAR DIE SIZER NURSE ABOUT THE CRITICAL CALCIUM OF 6.5, HEMOGLOBIN 6.5, HEMATOCRIT OF 21. SHE SAID CALLED DR. PITTS ABOUT THE HEMOGLOBIN AND HEMATOCRIT. SHE SAID THEY WILL COME IN LATER TO DEAL WITH THE CALCIUM
--- NOTE | 2020-04-29 07:25 | NUR ---
GAVE REPORT TO ONCOMING NURSE. CALL LIGHT WITHIN REACH. PATIENT IN BED. CALLED DR. PITTS OFFICE AND TALKED TO THE CALL CENTER ABOUT THE PATIENT HAVING A CRITICAL HEMOGLOBIN OF 6.5 AND HEMATOCRIT OF 21. WAITING FOR DR. PITTS TO CALL BACK.
[2020-04-29] MEDS: FAMOTIDINE 20 MG TAB PO SCH (07:30)
[2020-04-29] MEDS ORDERED: HYDROCODONE/APAP 10MG-325MG TAB PO PRN (07:30)
--- NOTE | 2020-04-29 07:30 | NUR ---
DR. PITTS CALLED BACK AND PLACED ORDERS FOR TYPE AND CROSS, 2 UNITS OF PACKED RED BLOOD CELLS EACH 3 HRS, 1 UNIT JUMBO PLATELETS, LASIX 20 MG BEFORE EACH TRANSFUSION, AND CBC AND ELECTROLYTES DONE TOMORROW.
--- NOTE | 2020-04-29 07:31 | NUR ---
received bedside shift report from PM nurse. no s/s of distress noted. will continue to monitor.
[2020-04-29] MEDS ORDERED: FUROSEMIDE INJ 10 MG/ML 2 ML VIAL IV PRN (07:45)
[2020-04-29] MEDS ORDERED: SODIUM CHLORIDE 0.9% 250ML 250 ML IV ONE (08:10)
[2020-04-29] MEDS: MAGNESIUM OXIDE 400 MG TAB PO SCH (08:15)
[2020-04-29] MEDS: CYANOCOBALAMIN INJ 1,000 MCG/ML VIAL IM SCH (08:15)
[2020-04-29] MEDS: MULTIVITAMINS/MINERALS TAB PO SCH (08:15)
[2020-04-29] MEDS: ASCORBIC ACID 500 MG TAB PO SCH (08:16)
[2020-04-29] MEDS: ZINC SULFATE 220 MG CAP PO SCH (08:16)
[2020-04-29] MEDS: OYST-CAL-D 500MG TABLET PO SCH (08:16)
[2020-04-29 08:17] LABS: ANISOCYTOSIS MODERATE
[2020-04-29 08:18] LABS: HYPOCHROMASIA SLIGHT
[2020-04-29 08:19] LABS: PLATELET ESTIMATE MARKEDLY DECREASED; PLATELET MORPHOLOGY COMMENT NORMAL; RBC MORPHOLOGY COMMENT ABNORMAL
[2020-04-29] MEDS ORDERED: EPINEPHRINE HCL SYRINGE ONE (08:19)
[2020-04-29] MEDS ORDERED: SODIUM CHLORIDE FLUSH 10 ML SYR ONE (08:19)
[2020-04-29] MEDS ORDERED: AMIODARONE HCL INJ 150MG/3ML ONE (08:19)
[2020-04-29] MEDS ORDERED: SODIUM BICARBONATE 8.4% INJ 50 ML SYR ONE (08:19)
[2020-04-29 08:21] VITALS: BP 109/58
[2020-04-29 08:40] VITALS: BP 109/58
[2020-04-29] MEDS ORDERED: POTASSIUM CHLORIDE 20 MEQ TAB CR PO ONE (09:25)
[2020-04-29] MEDS ORDERED: CALCIUM GLUCONATE 10% INJ 9.3 MEQ in SODIUM CHLORIDE 0.9% 100 ML 100 ML IV ONE (09:35)
--- NOTE | 2020-04-29 10:06 | NUR ---
ASSESSMENT: Spiritual concern Pt accepting of the gravity of his illness and likelihood of . Pt states he will go home and "prepare his will." Pt states he has "spent the last few birthdays in the hospital." Pt states his lives with his mother and brother. Intervention: Provided empathic listening and prayer. Facilitated discussion about EOL. Provided information on how to reach farm general manager, if needed. Outcome: Pt expressed appreciation for support. Will follow as able. ALLEGRA MENDOZA Founder And President Spiritual Care Department O: [phone]
[2020-04-29] MEDS ORDERED: TYLENOL WITH C1 EACH PO (10:14)
[2020-04-29] MEDS ORDERED: CEFDINIR300 MG PO (10:25)
--- NOTE | 2020-04-29 11:00 | NUR ---
starting transfusion of 1st unit of blood.
[2020-04-29] MEDS ORDERED: MORPHINE SULFATE 2 MG/ML SYR 1ML IV PRN (11:15)
--- NOTE | 2020-04-29 11:41 | NUR ---
pt uncomfortable, c/o chest pain, tachypnea, breathing 40/min. stopped transfusion. called MD and obtained new orders.
--- NOTE | 2020-04-29 11:57 | NUR ---
spoke with Dr. Janes Pyle for new consult. new orders obtained. Addendum: 04/29/20 at 1944 by Karen Peralta RN Lashanda states place pt on 8L NC.
[2020-04-29] MEDS ORDERED: FUROSEMIDE INJ 10 MG/ML 4 ML VIAL IV SCH (12:00)
[2020-04-29 12:02] VITALS: BP 115/64
--- NOTE | 2020-04-29 12:47 | NUR ---
SPOKE WITH JUD BALDERAS WHO STATES GIVE PT PLATELETS BUT HOLD THE 2ND UNIT OF BLOOD FOR NOW.
--- NOTE | 2020-04-29 12:48 | Diagnostic Imaging Report ---
EXAMINATION: CHEST SINGLE (PORTABLE) INDICATION: Shortness of breath COMPARISON: Chest radiograph 04/24/2020 FINDINGS: LINES/TUBES:Left PICC line unchanged. EKG leads overlie the chest. LUNGS:The lung volumes are low. Increased bilateral airspace opacities could represent edema versus multifocal pneumonia. PLEURA:No pleural effusion or pneumothorax. MEDIASTINUM: Large right mediastinal opacity corresponds with the mass partially visualized on the abdomen and pelvis CT of 04/24/2020. BONES/SOFT TISSUES:No acute osseous injury. ABDOMEN:No free air under the diaphragm. IMPRESSION: Interval increase in bilateral airspace opacities, possibly representing edema versus multifocal pneumonia. Unchanged appearance of right paramediastinal mass. Signed by: Charline Rosas MD on 04/29/2020 12:44 PM
--- NOTE | 2020-04-29 13:19 | NUR ---
SPOKE WITH DR. ESCOBAR AT BEDSIDE, INFORMED OF VBG RESULTS. HE AGREES WITH RT STARTING PT ON HIGH-ARIK OXYGEN.
--- NOTE | 2020-04-29 14:34 | NUR ---
Nutrition Intervention Note RD Recommendation(s) for Physician: -Continue current diet as ordered -Recommend Ensure Compact BID for added nutrition due to pressure ulcer -Recommend Tyrell BID as well as zinc and vitamin C to promote wound healing Plan of Care: RD following, monitoring for tolerance and adequacy, oral supplement recommendation Nutrition reason for involvement: follow up RD Assessment (04/29/20) Follow up. It is recorded that pt has been consuming 0-50% of meals since 04/25. Continue to recommend Ensure Compact BID as well as Tyrell BID for added nutrition to promote wound healing. Will continue to monitor. (04/24/20) Pt is a 25 year old male admitted with anemia and weakness. Pt stated he has been eating about 50% of his meals for the past month. Pt was unsure of his weight status and stated he last weighed 300 lbs. Pt stated weight in chart of 256 lbs is not accurate. There are no previous weights in chart. It is noted that pt has sacral stage 2 ulcer and healing stage 4 left gluteal/irish anal ulcer. No N/V or chewing/swallowing issues noted. Pt has a colostomy. Will continue to monitor. Principal Problems/Diagnoses: anemia and weakness PMH: testicular cancer, intestinal perforation, colon resection and colostomy one month ago, cerebral infarction, paraplegic, sacral pressure ulcer, nonhealing abdominal wall ulcer. GI: soft, non-tender, round abdomen, last recorded BM 04/27 Skin: sacral stage 2 ulcer, healing stage 4left gluteal/irish anal ulcer Labs: (04/29) Na 136, K 3.4, Cr 0.53, Ca 6.5 (04/24) Na 137, K 3.3, Cr 0.59, Ca 8.1, AST 38, ALT 127 Meds: zinc sulfate, vitamin C, vitamin B12, MV with minerals, antibiotics, zofran, pepcid, lasix, metoprolol Ht: 69 inches Wt: 300 lbs (per pt) BMI: 44.3 kg/m2 (using wt of 300 lbs per pt) IBW: 160 lbs Malnutrition Evaluation (04/24/20) The patient does not meet criteria for a specified degree of malnutrition at this time. Will re-evaluate at follow-up as appropriate. Nutrition Prescription (Diet Order): cardiac Estimated Nutritional Needs: 5655-2784 calories/day (22-25 kcal/kg IBW) 109-145 g protein/day (1.5-2 g pro/kg IBW) Diet Adequacy: Not meeting calorie needs, not meeting protein needs Tolerance: Tolerating PO Diet Education Needs Assessment: Pt declined the need for diet education on 04/24 Nutrition Care Level: moderate Nutrition Diagnosis: Increased nutrient needs related to increased demand for protein and kcal as evidenced by pressure ulcers. Goal: Patient will meet 75-100% of estimated needs by follow up Progress: progressing Interventions: -fat/cholesterol/sodium- modified diet, Commercial beverage, Multivitamin/mineral supplement therapy Monitoring/Evaluation: -Total energy intake, Total protein intake, Modified diet, Liquid supplement, Weight change Signed: Mallory Benoit RD, LD
--- NOTE | 2020-04-29 14:48 | NUR ---
escorted pt with industrial hygiene technician to CT scan.
--- NOTE | 2020-04-29 16:00 | NUR ---
pt found in bed, tachypneic, gasping for air, no longer able to respond to any questions, altered mental status, oxygen saturation 88% on high-robles oxygen. called Code. see Code sheet.
--- NOTE | 2020-04-29 16:04 | Diagnostic Imaging Report ---
EXAM: CT Chest WITH contrast- Pulmonary Embolism Protocol INDICATION: Shortness of breath COMPARISON: And descending aorta. TECHNIQUE: Chest was scanned utilizing a multidetector helical scanner from the lung apex through the level of the diaphragm after administration of IV contrast. Thin section reconstructions were obtained with special concentration on the pulmonary arteries. Coronal and sagittal reformations were obtained. Pulmonary embolism protocol was performed. IV CONTRAST: 100 cc of Isovue 370 RADIATION DOSE: Total DLP: 612.8 mGy*cm Dose modulation, iterative reconstruction, and/or weight based adjustment of the mA/kV was utilized to reduce the radiation dose to as low as reasonably achievable. COMPLICATIONS: None FINDINGS: LINES/ TUBES: Left PICC line terminates at the confluence of the dominant veins. PULMONARY ARTERIES: No filling defect is identified within the pulmonary arteries to the segmental level. The subsegmental pulmonary arteries are not well opacified. Main pulmonary artery measures 2.3 cm in diameter. LUNGS AND AIRWAYS: The central airways are patent. Innumerable bilateral pulmonary nodules and masses consistent with extensive pulmonary metastatic disease. Nodular interlobular septal thickening may represent lymphangitic spread of disease. Scattered areas of additional groundglass and consolidative opacities. PLEURA: The pleural spaces are clear. HEART AND MEDIASTINUM: Large right paramediastinal mass measures up to 11.6 x 10.1 x 9.2 cm and exerts mass effect upon the right atrium. The heart is not enlarged. No right heart strain. New large pericardial effusion. UPPER ABDOMEN: Please see the separate dictation for the abdomen and pelvis CT for a detailed discussion of intra-abdominal findings. BONES: No acute osseous injury. IMPRESSION: New large pericardial effusion. Large necrotic right paramediastinal mass consistent with malignancy. There is associated mass effect on the right atrium, SVC, and ascending aorta. 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 Scattered additional areas of groundglass opacity for which superimposed multifocal infection cannot be excluded. Signed by: Charline Rosas MD on 04/29/2020 4:00 PM
--- NOTE | 2020-04-29 16:16 | NUR ---
Dr Pyle and ER physician at bedside. called time of . JUD Barreto notified who states she will contact family.
--- NOTE | 2020-04-29 17:10 | Consultation ---
DATE OF CONSULTATION: Pulmonary Critical Care consultation CHIEF COMPLAINT: Worsening dyspnea and tachypnea. HISTORY OF PRESENT ILLNESS: The patient is 25-year-old with a history of neurosarcoidosis and paraplegia. He also has a history of metastatic testicular cancer with brain METS. The patient has received chemotherapy, but apparently was not responding. He was staying at a nursing facility and was transferred back to the [facility]. He had anemia and required blood transfusions. This morning he also developed worsening dyspnea and tachypnea. PAST SURGICAL HISTORY: Noncontributory. PAST MEDICAL HISTORY: 1. Testicular cancer. 2. Neurosarcoidosis. 3. Chronic renal failure, stage 3. SOCIAL HISTORY: The patient is not a smoker. He is not a drinker. REVIEW OF SYSTEMS: The patient is afebrile. He has no headache. He complains of worsening dyspnea. He has no chest pain. He has no abdominal pain. There is no nausea or vomiting. He has no leg edema. PHYSICAL EXAMINATION: VITAL SIGNS: The patient is afebrile. The vital signs are stable. HEENT: No facial swelling or erythema. CARDIAC: Regular rate and rhythm with normal S1, S2. LUNGS: Auscultation of lungs shows decreased breath sounds at the bases. There is no wheezing. ABDOMEN: Soft, nontender. There is no rebound or guarding. EXTREMITIES: No leg edema or calf tenderness. IMPRESSION: 1. Worsening dyspnea. 2. Bilateral pulmonary infiltrates. 3. History of pulmonary embolism. 4. Metastatic testicular cancer. PLAN: 1. The patient will have a stat ABG. 2. Continue oxygen. 3. Stat CT of chest to rule out PE. 4. Broaden antibiotics to cover for healthcare-associated organisms. Janes Pyle MD [facility]/MODL /[id number]
[2020-04-29] MEDS ORDERED: SODIUM CHLORIDE 0.9% 50ML 50 ML ONE (19:05)
[2020-04-29] MEDS ORDERED: IOPAMIDOL 370 MG/ML 200 ML INFUS..BTL INJ ONE (19:05)
--- NOTE | 2020-04-29 19:05 | Operative Report ---
DATE OF PROCEDURE: SURGEON: Janes Pyle MD PROCEDURE: Endotracheal intubation with GlideScope. PREOPERATIVE DIAGNOSIS: Respiratory failure. POSTOPERATIVE DIAGNOSIS: Respiratory failure. CONSENT: Consent was deemed emergent due to the circumstances and hemodynamic and respiratory instability. MEDICATIONS: None. DESCRIPTION OF PROCEDURE: The patient was in the supine position. He was ventilated with an Ambu bag in an oral airway. A 4-0 blade was used to visualize the glottis. An 8.0 tube was passed on the first attempt. There was good CO2 return with equal breath sounds bilaterally. COMPLICATIONS: None. ESTIMATED BLOOD LOSS: None. Janes Pyle MD [facility]/MODL /[id number]
--- NOTE | 2020-04-29 20:06 | NUR ---
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
[2020-04-30] MEDS ORDERED: RIVAROXABAN 10 MG TABLET PO SCH (09:00)
--- NOTE | 2020-04-30 14:20 | Discharge Summary ---
DATE OF : 04/29/2020. ADMISSION DIAGNOSES: 1. Anemia of chronic disease due to cancer. 2. Multiple wounds present on admission including sacral stage III abdominal wound and right neck wound. 3. Nonseminoma, specifically extradural cell tumor. 4. Neurosarcoidosis. 5. Transaminitis. 6. Ambulatory dysfunction. DISCHARGE DIAGNOSES: 1. Anemia of chronic disease due to cancer. 2. Multiple wounds present on admission including sacral stage III abdominal wound and right neck wound. 3. Nonseminoma, specifically extradural cell tumor. 4. Neurosarcoidosis. 5. Transaminitis. 6. Ambulatory dysfunction. 7. Rule out gastrointestinal bleed. 8. Rule out coronavirus. 9. 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 10. Escherichia coli of the urine present on admission due to self catheterization at home. 11. Rule out bacteremia. 12. Large pericardial effusion/cardiac tamponade. HISTORY: Nonseminoma extradural cell tumor, neurosarcoidosis using chemo, however, not responsive, anemia of chronic disease, ESBL of the urine, cerebral infarction, intestinal perforation, which resulted in colostomy, neurogenic bowel, testicular cancer, insomnia, neurosarcoidosis, obesity, multilobulated right paramediastinal mass. SURGICAL HISTORY: Colon resection with colostomy. FAMILY HISTORY: The patient's mom has diabetes. SOCIAL HISTORY: Occasional alcohol use. HOSPITAL COURSE: A 25-year-old male from [facility], admitted for anemia with a hemoglobin of 6.8. He denies bleeding anywhere. States that he was at [facility] about one month ago where he had a colon resection and colostomy done due to intestinal perforation. From the [facility] he was transferred to the halfway facility and was only there for about one week. On admission, CT of the abdomen was done, which showed partially imaged multilobulated right mediastinal mass which demonstrates peripheral enhancement with necrotic center causing mass effect on the mediastinal structures, multiple nodules throughout both lungs and masses in the liver suspicious for metastatic lesion. Hematology was consulted. Blood was transfused. Antibiotics were started including Zosyn, Flagyl and vancomycin per Hematology recommendation. Urine was collected which came back positive for E coli. Due to the multiple wounds, the patient had a Major placed. Blood cultures were drawn, which were negative. The patient had intermittent fever, which was due to the cancer per Hematology recommendation. White count remained normal. The patient received multiple blood transfusion and platelets during hospitalization. His coronavirus was negative. His stool for blood was negative. On the date of 04/29 around 11, the patient began having trouble breathing and rapid respiratory rate per nurse evaluation. He also began complaining of chest pain. Troponin was ordered. Lasix was ordered and chest x-ray was ordered and Pulmonology was consulted. Chest x-ray showed edema. Lasix IV was given. The patient continued to have trouble breathing, so a CT of the chest was ordered. Prior to the results being available the patient coded. Pulmonology was at the bedside during the code. During the code the CT of the chest results came back, which showed a large pericardial effusion. The windows application packager was able to drain about 50 mL from the pericardial effusion. The patient did not improve and the code was called. Time of 1616 hours on 04/29/2020. All of this was discussed with the patient's brother. Arrangements will be made for the family to visit the patient prior to the body being taken to the home. All questions were answered with the family. Per the patient's brother, they were expecting it to happen and they were just hoping it would not happen so soon. Dictated by Mary Lou Epstein NP MD PATRICE Dos Santos/MODL /[id number]
--- NOTE | 2020-05-01 12:45 | Progress Note ---
DATE: 04/27/2020 SUBJECTIVE: The patient is still complaining of chronic what he calls " " chest pain. He was seen by the oncologist today, Dr. Gabriel. The patient states he sees Dr. Muhammad, oncologist at [facility] in [facility] on an outpatient basis. Still has some dizziness when he moves his head initially when he moves the head of his bed up and down. OBJECTIVE: VITAL SIGNS: Temperature 100.1, T-max 103, heart rate 111, blood pressure 104/62, respirations 20, and oxygen saturation 92%. GENERAL: Head of bed elevated supine. LUNGS: Clear to auscultation. No supplemental oxygen. Respirations even and nonlabored on room air. HEENT: EOMI. MMM. NECK: Supple. No JVD. CARDIOVASCULAR: Regular rate and rhythm without murmur. Normal saline infusing at 100 mL an hour into a left upper extremity PICC line. ABDOMEN: Bowel sounds positive. Soft, nontender, obese. He has a midline abdominal incision with packing in place. He has a colostomy, was still inside. Major catheter with dark jaquan urine. EXTREMITIES: No pitting edema. No clubbing, cyanosis, or signs of DVT. NEUROLOGICAL: GCS 15. Nonfocal. Oriented x4. INTEGUMENTARY: Abdominal wound as described above. He has a stage IV sacral decubitus ulcer. He has a right jaw/neck wound with packing. LABORATORY AND DIAGNOSTIC STUDIES: WBC 7.79, RBCs 2.85, hemoglobin 8.4, hematocrit 26.6, and platelets 30. Sodium 137, potassium 3.5, chloride 104, CO2 26, anion gap 10.5, BUN 10, creatinine 0.57, estimated GFR greater than 60, glucose 77, calcium 7.6, phosphorus 2.2, and magnesium 1.8. Total 0.9, AST 19, ALT 38, alkaline phosphatase 51, total 5.8, albumin 2.1. No new imaging results. ASSESSMENT AND PLAN: 1. Anemia with iron deficiency, likely anemia of chronic disease from cancer and multiple wounds. Hematology/Oncology continues to follow. H and H stable, status post blood products recently. Appreciate recommendations from Oncology. 2. Multiple wounds; all present on admission, sacral stage IV decubitus ulcer, right neck wound, midline abdominal wound. Wound care physician following. Continue Hydrogel, Aquacel, and ABD pad. Appreciate recommendations. Right neck ulcer with iodoform gauze dressing change daily. Continue offloading and wound healing medications. 3. 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 The patient had a colon resection with colostomy due to bowel perforation. He was not responsive to the first of four courses of chemotherapy, thus the chemotherapy was stopped. CT has shown a 2.5 cm mass. Continue heavy antibiotic treatment with vancomycin, Flagyl, and Zosyn. Monitor CBC results. Continue Duragesic patch 50 mcg transdermally every 72 hours for pain. 4. Elevated T. bilirubin, transaminitis. Monitor. 5. Hypomagnesemia, improved. Magnesium level 1.8 today. Phosphorus is mildly low at 2.2. Continue to monitor. 6. Acute hypokalemia. Potassium level 3.5 (3.3, 3.0) improved. Follow up potassium level tomorrow. 7. Ambulatory dysfunction. PT evaluation and treat. 8. Prophylaxis. Pepcid and SCDs. 9. Billing code [id number]. Time spent 35 minutes. Dictated by Sal Mcgovern NP MD LEANDER Dos Santos/DORIS /[id number]
== END 2020-04-29 22:34 | disposition expired | DRG 722 ==
LOC: ER 15:58 → ERHOLD 16:08 → MED/SURG 17:10 → OBSVTOIN 04-23 12:27
PROVIDERS: ADMIT Internal Medicine; ATTEND Internal Medicine
PROC: 30233N1 Transfusion of Nonautologous Red Blood Cells into Peripheral Vein, Percutaneous Approach (ICD-10-PCS; 2020-04-21)
PROC: 02HV33Z Insertion of Infusion Device into Superior Vena Cava, Percutaneous Approach (ICD-10-PCS; 2020-04-24)
PROC: 30243N1 Transfusion of Nonautologous Red Blood Cells into Central Vein, Percutaneous Approach (ICD-10-PCS; 2020-04-24)
PROC: 0BH17EZ Insertion of Endotracheal Airway into Trachea, Via Natural or Artificial Opening (ICD-10-PCS; principal; 2020-04-29)
PROC: 5A1935Z Respiratory Ventilation, Less than 24 Consecutive Hours (ICD-10-PCS; 2020-04-29)
DX: C62.90 Malignant neoplasm of unspecified testis, unspecified whether descended or undescended (principal); L89.154 Pressure ulcer of sacral region, stage 4; J96.90 Respiratory failure, unspecified, unspecified whether with hypoxia or hypercapnia; T83.511A Infection and inflammatory reaction due to indwelling urethral catheter, initial encounter; D61.818 Other pancytopenia; C47.9 Malignant neoplasm of peripheral nerves and autonomic nervous system, unspecified; C78.1 Secondary malignant neoplasm of mediastinum; G82.20 Paraplegia, unspecified; I31.4 Cardiac tamponade; C79.31 Secondary malignant neoplasm of brain; C78.02 Secondary malignant neoplasm of left lung; C78.01 Secondary malignant neoplasm of right lung; C78.7 Secondary malignant neoplasm of liver and intrahepatic bile duct; N39.0 Urinary tract infection, site not specified; D64.9 Anemia, unspecified; Z86.711 Personal history of pulmonary embolism; D63.0 Anemia in neoplastic disease; D86.81 Sarcoid meningitis; R26.9 Unspecified abnormalities of gait and mobility; B96.20 Unspecified Escherichia coli [E. coli] as the cause of diseases classified elsewhere; B96.89 Other specified bacterial agents as the cause of diseases classified elsewhere; G47.00 Insomnia, unspecified; E66.9 Obesity, unspecified; Z68.31 Body mass index [BMI] 31.0-31.9, adult; E83.42 Hypomagnesemia; R74.0 Nonspecific elevation of levels of transaminase and lactic acid dehydrogenase [LDH]; Z93.3 Colostomy status; S11.90XD Unspecified open wound of unspecified part of neck, subsequent encounter; Z86.73 Personal history of transient ischemic attack (TIA), and cerebral infarction without residual deficits; Z11.59 Encounter for screening for other viral diseases; R50.81 Fever presenting with conditions classified elsewhere
CPT/HCPCS: 31500; 36415; 36569; 36600; 71045; 71260; 74177; 80048; 80053; 80202; 81001; 82105; 82270; 82550; 82553; 82607; 82728; 82746; 82948; 83540; 83735; 84100; 84466; 84484; 84702; 85014; 85018; 85025; 85045; 85610; 85730; 86078; 86850; 86900; 86920; 87040; 87071; 87086; 87186; 87205; 92950; 97139; 97605; 99284; G0378; J0171; J0610; J1940; J2270; J2405; J2543; J3370; J3420; J3475; J3480; J7030; J7050; P9016; P9034; Q9967; U0002